=== PATIENT | female | born 1955 | race Caucasian/White ===

== ENCOUNTER 2025-04-25 08:26 | Inpatient (IN) | payer MEDICARE, SELFPAY ==
[2025-04-25] VITALS (29 sets, daily range): BP systolic 90–130; BP diastolic 40–83; PULSE 73–100; RESP 15–90; TEMP 34.1–36.9; O2SAT 96–100; BMI 20.1
--- NOTE | ~2025-04-25 | US_ITS ---
EXAMINATION: US carotid duplex BI DATE: 04/26/2025 17:19 INDICATION: CVA. TECHNIQUE: Grayscale, color Doppler, and pulsed Doppler images of the cervical carotid arteries were obtained. The degree of vessel stenosis is placed in one of the following categories: normal, <50%, 50-69%, >=70% but less than near- occlusion, near-occlusion, or total occlusion. Note that percent stenosis relative to normal distal artery lumen diameter is indirectly measured from velocity measurements as described by Deo, et al. Radiology 2003; 229:340-346. COMPARISON: CT head dated 04/25/2025 FINDINGS: RIGHT: The right common carotid artery (CCA) peak systolic velocity (PSV) is 82 cm/s. The right internal carotid artery (ICA) PSV is 113 cm/s. The right ICA end- diastolic velocity (EDV) is 25 cm/s. The right ICA/CCA PSV ratio is 1.38. Grayscale and color Doppler images yield an estimate of less than 50%% diameter reduction from plaque in the ICA. There is antegrade flow in the right vertebral artery. LEFT: The left CCA PSV is 66 cm/s. The left ICA PSV is 120 cm/s. The left ICA EDV is 40 cm/s. The left ICA/CCA PSV ratio is 1.79. Grayscale and color Doppler images yield an estimate of less than 50% diameter reduction from plaque in the ICA. There is antegrade flow in the left vertebral artery. IMPRESSION: 1. Antegrade flow in both vertebral arteries.. 2. Calcific atherosclerotic plaque of proximal internal carotid arteries on both sides with an estimated narrowing of less than 50% in diameter on each side based on NASCET criteria. No evidence of hemodynamically significant obstruction is noted.. Reviewed, dictated and finalized at location T. FIC SURVEY TECHNICIAN IMPRESSION: 1. Antegrade flow in both vertebral arteries.. 2. Calcific atherosclerotic plaque of proximal internal carotid arteries on bot h sides with an estimated narrowing of less than 50% in diameter on each side b ased on NASCET criteria. No evidence of hemodynamically significant obstruction is noted..
--- NOTE | ~2025-04-25 | XR_ITS ---
EXAMINATION: XR pelvis 1-2V, 04/25/2025 9:20 LIFE EDUCATOR HISTORY: fall COMPARISON: No comparisons available. Findings: No acute fracture or malalignment. No significant degenerative changes. Soft tissues unremarkable. Impression: No acute fracture or malalignment. Reviewed, dictated and finalized at location P. EDUCATOR Impression: No acute fracture or malalignment.
--- NOTE | ~2025-04-25 | US_ITS ---
EXAMINATION: US renal BI DATE: 04/25/2025 12:52 INDICATION: Acute renal insufficiency TECHNIQUE: Multiple ultrasound grayscale images of the kidneys were obtained. COMPARISON: None. FINDINGS: The right kidney measures 2.4 x 3.2 x 4.9 cm. The left kidney measures 11.1 x 4.5 x 3.7 cm. The kidneys demonstrate normal echogenicity. There is no hydronephrosis in either kidney. No stones identified. The bladder is partially decompressed which limits evaluation. IMPRESSION: 1. Normal kidneys without hydronephrosis. Reviewed, dictated and finalized at location A. STANT KITCHEN MANAGER
--- NOTE | ~2025-04-25 | CT_ITS ---
CT HEAD NON-CONTRAST CT C-SPINE Clinical History: ams Comparison: None Technique: Unenhanced axial images skull base to vertex. Coronal, sagittal reformats. Axial images thoracic inlet to skull base. Sagittal and coronal reformats. CT images acquired with automatic exposure control for dose reduction DLP: 605 mGy-cm Findings: Head: Hypodense focus left occipital lobe. Sulci, ventricles: Unremarkable. No intracerebral hemorrhage. No mass effect, midline shift, intra-/extra-axial fluid collection. Bony calvarium intact. Visualized paranasal sinuses: Clear. Mastoid air cells: Clear. C-spine: No acute fracture Grade 1 anterolisthesis C4 on 5. Straightening of normal cervical lordosis. Moderate degenerative changes in. Prevertebral soft tissues within normal limits. Visualized lung apices: Emphysema. Scarring. Visualized thyroid: Unremarkable. No enlarged cervical nodes. IMPRESSION: HEAD: 1. 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 Consider MRI, if able. 2. No intracerebral hemorrhage. C-SPINE: 1. No acute fracture. Reviewed, dictated and finalized at location R. CTOR OF HOSPITALITY IMPRESSION: HEAD: 1. 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 Consider MRI, if able. 2. No intracerebral hemorrhage. C-SPINE: 1. No acute fracture.
--- NOTE | ~2025-04-25 | MR_ITS ---
EXAMINATION: MRI brain with and without contrast: DATE: 04/26/2025 INDICATION: Stroke. TECHNIQUE: Axial, coronal and sagittal images of the brain including postcontrast series after administration of MultiHance IV. COMPARISON: CT head dated 04/25/2020 FINDINGS: Significant focal restricted diffusion in the occipital lobes, predominantly in the left occipital lobe and smaller area in the right occipital lobe suggestive of acute posterior circulation stroke. No acute intracranial bleed. No ventriculomegaly or midline shift. On postcontrast study no abnormal enhancement. IMPRESSION: 1. Restricted diffusion suggestive of acute infarct in the occipital lobes, predominantly on the left side and smaller area on the right side. 2. No intracranial bleed. No space-occupying lesions. No abnormal enhancement. Reviewed, dictated and finalized at location T. TIZER IMPRESSION: 1. Restricted diffusion suggestive of acute infarct in the occipital lobes, pre dominantly on the left side and smaller area on the right side. 2. No intracranial bleed. No space-occupying lesions. No abnormal enhancement.
--- NOTE | ~2025-04-25 | XR_ITS ---
EXAMINATION: XR chest 1V DATE: 04/25/2025 09:35 INDICATION: Altered mental status and fall TECHNIQUE: AP view of the chest was obtained. COMPARISON: None FINDINGS: Mild biapical pleural-parenchymal scarring. No other airspace opacities, pulmonary edema, pleural effusion or pneumothorax. The cardiomediastinal silhouette is normal. Lower thoracic spondylosis. IMPRESSION: 1. No acute cardiopulmonary disease. Reviewed, dictated and finalized at location A. MANUFACTURING ENGINEERING TECH
--- NOTE | 2025-04-25 08:37 | ECG_ITS ---
Test Date: 2025-04-25 08:40:09 Measurements Intervals [place] Rate: 91 P: 78 ME: 177 QRS: 75 QRSD: 94 T: 61 QT: 384 QTc: 475 Interpretive Statements SINUS RHYTHM RIGHT ATRIAL ENLARGEMENT BASELINE WANDER- V4-V6 BORDERLINE ECG No previous ECG available for comparison Electronically Signed On 04-25-2025 08:46:21 DUPLEX TRIMMER by Urbano Castillo D.O.
--- NOTE | 2025-04-25 08:41 | ED.AMS ---
HPI - Altered Mental Status General Chief Complaint: Altered Mental Status Stated Complaint: AMS Time Seen by Provider: 04/25/25 08:41 History of Present Illness HPI narrative: 69-year-old female with reported history of diabetes presents by EMS from home for altered mental status. There is no collateral or family at bedside. Patient is unable to provide any meaningful history. Per EMS report the blood sugars read as ?high?. Patient was found on the ground at home, no witnessed fall patient was apparently last known at her baseline per family were not present yesterday sometime Related Data Allergies Allergy/AdvReac Type Severity Reaction Status Date / Time No Known Allergies Allergy Unverified 02/10/18 13:46 Review of Systems Review of Systems: ROS unobtainable: Yes unobtainable due to mental status Exam Narrative: EXAMINATION OF ORGAN SYSTEMS/BODY AREAS: Constitutional: Vital signs per nursing GENERAL: Patient is disheveled moving around the bed nontoxic-appearing HEAD: Normal with no signs of head trauma. EYES: EOMI, conjunctiva normal, extraocular movements intact pupils equal round reactive 4 mm ENT: Dry mucous membranes LUNGS: Nonlabored breathing. Clear to auscultation bilaterally HEART: [Regular rate and rhythm], brisk cap refill ABD: [Soft], [nontender to palpation] EXT: Normal range of motion no obvious deformity SKIN: [No rashes or lesions.] Some superficial abrasions on the right hand otherwise no rashes noted NEURO: Patient withdraws all 4 extremities to pain, does not follow commands, A&O times 0, cranial nerves 2-12 grossly intact PSYCH: Agitated affect Course Vital Signs Vital signs: Vital Signs Pulse Rate 93 04/25/25 08:27 Respiratory Rate 20 04/25/25 08:27 Blood Pressure 105/54 L 04/25/25 08:27 Temperature 35.6 C L 04/25/25 11:01 Pulse Rate 97 04/25/25 11:01 Respiratory Rate 20 04/25/25 11:01 Blood Pressure 90/49 L 04/25/25 11:01 Pulse Oximetry 98 04/25/25 11:01 Oxygen Delivery Room Air 04/25/25 08:51 MDM Differential Diagnosis Differential Diagnosis: 69-year-old female presents with altered mental status was found to have significantly elevated blood sugar. I am concerned for DKA with the impetus is unclear at this time. Will initiate extensive altered mental status workup for any infectious etiology significant electrolyte abnormality. Will obtain CT head to rule out intracranial bleed or mass. Will initiate IV hydration she is significantly dehydrated, p.r.n. medications for agitation the patient will require hospitalization after stabilization ED workup. Resultant multiple re-evaluations Patient's labs notable for severe DKA. I have given the patient a bolus of IV insulin and started on the drip. I spoke with the fish hatchery man, and the hospitalists. There is still no family at bedside. Her clinical status is largely unchanged. Given her hypothermia hypotension severe leukocytosis and lactic acid I am concern for severe sepsis so she has got a 30 cc/kg bolus of fluids and I covered her empirically for sepsis of an unclear origin. Patient admitted to hospital in serious condition Lab Data MDM Lab Attestation statement: I personally reviewed the patient's lab results. 04/25/25 09:07 04/25/25 09:07 Labs: Lab Results 04/25/25 04/25/25 04/25/25 Range/Units 08:33 08:41 09:06 WBC (4.5-10.0) K/mm3 RBC (4.2-5.4) M/mm3 Hgb (12.0-15.0) g/dL Hct (37.0-47.0) % MCV (80-100) fl MCH (26-34) pg MCHC (32-36) g/dl RDW (11.5-14.5) % Plt Count (150-375) k/mm3 MPV (7.4-10.4) fl Immature Gran % (Auto) (0-0.5) % Neut % (Auto) (45.5-73.1) % Lymph % (Auto) (18.3-44.2) % [place] % (Auto) (2.6-8.5) % Eos % (Auto) (0-4.4) % Baso % (Auto) (0.2-1.2) % Lymph # (Auto) (0.9-3.2) K/mm3 [place] # (Auto) (0.1-0.6) K/mm3 Eos # (Auto) (0-0.3) K/mm3 Baso # (Auto) (0.0-0.1) K/mm3 Abs Immat Gran (auto) (0.00-0.031) K/mm3 Absolute Neuts (auto) (1.3-6.7) K/mm3 Absolute Nucleated RBC (0.0-0.012) K/mm3 Nucleated RBC % (0.0-0.2) % Methemoglobin 0.3 (0-1.5) %THb Sodium (137-145) mmol/L Potassium (3.4-5.0) mmol/L Chloride (98-107) mmol/L Carbon Dioxide (22-30) mmol/L Anion Gap (4-12) mmol/L BUN (7-17) mg/dL Creatinine (0.7-1.0) mg/dL Estim Creat Clear Calc ml/min Estimated GFR (59 - ) Glucose (65-110) mg/dL POC Capillary Glucose > 500 H* (65-105) mg/dl Hemoglobin A1c (<5.7) % Lactic Acid (0.7-2.0) mmol/L Calcium (8.4-10.2) mg/dL Phosphorus (2.5-4.5) mg/dL Magnesium (1.6-2.3) mg/dL Total Bilirubin (0.2-1.3) mg/dL AST (14-36) U/L ALT (6-35) U/L Alkaline Phosphatase (38-126) U/L Ammonia (9-30) umol/L Troponin I (0.000-0.034) ng/mL Total Protein (6.3-8.2) g/dL Albumin (3.5-5.1) g/dL TSH (Reflex) (0.465-4.68) uIU/mL Urine Color Yellow (Yellow) Urine Appearance Clear (Clear) Urine pH 5.0 (5.0-9.0) Ur Specific [place] 1.028 (1.001-1.035) Urine Protein Negative (Negative) mg/dL Urine Glucose (UA) 3+ H (Negative) mg/dL Urine Ketones 1+ H (Negative) mg/dL Ur Blood (Man) Negative (Negative) Urine Nitrate Negative (Negative) Urine Bilirubin Negative (Negative) Urine Urobilinogen 0.2 (<2.0) mg/dL Leukocyte Esterase Rfl Negative (Negative) ELLIOTT/UL Ethyl Alcohol (<10) mg/dL 04/25/25 04/25/25 04/25/25 Range/Units 09:07 09:07 09:08 WBC 22.6 H (4.5-10.0) K/mm3 RBC 4.56 (4.2-5.4) M/mm3 Hgb 13.5 (12.0-15.0) g/dL Hct 43.4 (37.0-47.0) % MCV 95.2 (80-100) fl MCH 29.6 (26-34) pg MCHC 31.1 L (32-36) g/dl RDW 13.2 (11.5-14.5) % Plt Count 295 (150-375) k/mm3 MPV 11.9 H (7.4-10.4) fl Immature Gran % (Auto) 2.8 H (0-0.5) % Neut % (Auto) 83.6 H (45.5-73.1) % Lymph % (Auto) 6.8 L (18.3-44.2) % [place] % (Auto) 6.1 (2.6-8.5) % Eos % (Auto) 0.0 (0-4.4) % Baso % (Auto) 0.7 (0.2-1.2) % Lymph # (Auto) 1.53 (0.9-3.2) K/mm3 [place] # (Auto) 1.4 H (0.1-0.6) K/mm3 Eos # (Auto) 0.0 (0-0.3) K/mm3 Baso # (Auto) 0.2 H (0.0-0.1) K/mm3 Abs Immat Gran (auto) 0.64 H (0.00-0.031) K/mm3 Absolute Neuts (auto) 18.9 H (1.3-6.7) K/mm3 Absolute Nucleated RBC 0.000 (0.0-0.012) K/mm3 Nucleated RBC % 0.0 (0.0-0.2) % Methemoglobin (0-1.5) %THb Sodium 130 L (137-145) mmol/L Potassium 4.8 (3.4-5.0) mmol/L Chloride 93 L (98-107) mmol/L Carbon Dioxide 10 L (22-30) mmol/L Anion Gap 27 H (4-12) mmol/L BUN 49 H (7-17) mg/dL Creatinine 1.90 H (0.7-1.0) mg/dL Estim Creat Clear Calc 21 ml/min Estimated GFR 26 L (59 - ) Glucose 1226 H* (65-110) mg/dL POC Capillary Glucose (65-105) mg/dl Hemoglobin A1c 9.9 H (<5.7) % Lactic Acid 6.4 H* (0.7-2.0) mmol/L Calcium 8.8 (8.4-10.2) mg/dL Phosphorus 7.6 H (2.5-4.5) mg/dL Magnesium 2.2 (1.6-2.3) mg/dL Total Bilirubin 0.6 (0.2-1.3) mg/dL AST 38 H (14-36) U/L ALT 31 (6-35) U/L Alkaline Phosphatase 148 H (38-126) U/L Ammonia < 9 L (9-30) umol/L Troponin I 0.102 H* Cancelled (0.000-0.034) ng/mL Total Protein 6.6 (6.3-8.2) g/dL Albumin 3.9 (3.5-5.1) g/dL TSH (Reflex) 2.360 (0.465-4.68) uIU/mL Urine Color (Yellow) Urine Appearance (Clear) Urine pH (5.0-9.0) Ur Specific [place] (1.001-1.035) Urine Protein (Negative) mg/dL Urine Glucose (UA) (Negative) mg/dL Urine Ketones (Negative) mg/dL Ur Blood (Man) (Negative) Urine Nitrate (Negative) Urine Bilirubin (Negative) Urine Urobilinogen (<2.0) mg/dL Leukocyte Esterase Rfl (Negative) ELLIOTT/UL Ethyl Alcohol < 10 (<10) mg/dL 04/25/25 04/25/25 Range/Units 10:17 11:42 WBC (4.5-10.0) K/mm3 RBC (4.2-5.4) M/mm3 Hgb (12.0-15.0) g/dL Hct (37.0-47.0) % MCV (80-100) fl MCH (26-34) pg MCHC (32-36) g/dl RDW (11.5-14.5) % Plt Count (150-375) k/mm3 MPV (7.4-10.4) fl Immature Gran % (Auto) (0-0.5) % Neut % (Auto) (45.5-73.1) % Lymph % (Auto) (18.3-44.2) % [place] % (Auto) (2.6-8.5) % Eos % (Auto) (0-4.4) % Baso % (Auto) (0.2-1.2) % Lymph # (Auto) (0.9-3.2) K/mm3 [place] # (Auto) (0.1-0.6) K/mm3 Eos # (Auto) (0-0.3) K/mm3 Baso # (Auto) (0.0-0.1) K/mm3 Abs Immat Gran (auto) (0.00-0.031) K/mm3 Absolute Neuts (auto) (1.3-6.7) K/mm3 Absolute Nucleated RBC (0.0-0.012) K/mm3 Nucleated RBC % (0.0-0.2) % Methemoglobin (0-1.5) %THb Sodium (137-145) mmol/L Potassium (3.4-5.0) mmol/L Chloride (98-107) mmol/L Carbon Dioxide (22-30) mmol/L Anion Gap (4-12) mmol/L BUN (7-17) mg/dL Creatinine (0.7-1.0) mg/dL Estim Creat Clear Calc ml/min Estimated GFR (59 - ) Glucose (65-110) mg/dL POC Capillary Glucose > 500 H* > 500 H* (65-105) mg/dl Hemoglobin A1c (<5.7) % Lactic Acid (0.7-2.0) mmol/L Calcium (8.4-10.2) mg/dL Phosphorus (2.5-4.5) mg/dL Magnesium (1.6-2.3) mg/dL Total Bilirubin (0.2-1.3) mg/dL AST (14-36) U/L ALT (6-35) U/L Alkaline Phosphatase (38-126) U/L Ammonia (9-30) umol/L Troponin I (0.000-0.034) ng/mL Total Protein (6.3-8.2) g/dL Albumin (3.5-5.1) g/dL TSH (Reflex) (0.465-4.68) uIU/mL Urine Color (Yellow) Urine Appearance (Clear) Urine pH (5.0-9.0) Ur Specific [place] (1.001-1.035) Urine Protein (Negative) mg/dL Urine Glucose (UA) (Negative) mg/dL Urine Ketones (Negative) mg/dL Ur Blood (Man) (Negative) Urine Nitrate (Negative) Urine Bilirubin (Negative) Urine Urobilinogen (<2.0) mg/dL Leukocyte Esterase Rfl (Negative) ELLIOTT/UL Ethyl Alcohol (<10) mg/dL ABG Data ABG results: 04/25/25 08:41 Puncture Site Right radial ABG pH 7.279 L* ABG pCO2 25.4 L ABG pO2 92.2 ABG PO2/FiO2 Ratio 4.39 ABG HCO3 11.6 L ABG O2 Saturation 96.3 ABG O2 Content 19.4 ABG Base Excess -13.2 A-a Gradient 27.1 Oxyhemoglobin 95.3 Carboxyhemoglobin 1.0 Reduced Hemoglobin 3.4 Total Hemoglobin 14.4 O2 Delivery Device Room air O2 Liters/Min Not Reportable FiO2 21 Imaging Data Radiologist's impression: ITS Impressions Cervical Spine CT 04/25/25 09:27 IMPRESSION: HEAD: 1. 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 Consider MRI, if able. 2. No intracerebral hemorrhage. C-SPINE: 1. No acute fracture. Head CT 04/25/25 09:27 IMPRESSION: HEAD: 1. 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 Consider MRI, if able. 2. No intracerebral hemorrhage. C-SPINE: 1. No acute fracture. Chest X-Ray 04/25/25 09:36 IMPRESSION: 1. No acute cardiopulmonary disease. Pelvis X-Ray 04/25/25 09:36 Impression: No acute fracture or malalignment. Critical Care Time Critical Care Time Critical Care Time: Yes Indication: severe dka Initial evaluation, discuss w/ involved parties, attempting to gather old records: 15 minutes Documenting medical record: 10 minutes Review of results (EKG's, labs, imaging): 10 minutes Serial repeat bedside evaluation: 10 minutes Discussing case with multiple memebers of the care team and consultants: 5 minutes Total Critical Care Time: 50 Discharge Plan Discharge Clinical Impression: DKA (diabetic ketoacidosis), Encephalopathy Patient Disposition: Still a Patient Condition: Serious Patient Language: Cuban Follow-up/Referrals: PHYSICIAN,CHANGE MANAGEMENT SPECIALIST [Non-Staff, Internal Medicine]
[2025-04-25] MEDS: SODIUM CHLORIDE 0.9% IV 1,000 ML 999 ML IV CONT ×2 (08:54→09:43)
[2025-04-25 08:57] LABS: Alveolar/Arterial O2 Gradient 27.1 mmHg; Carboxyhemoglobin 1.0 % THb (0-2.0); Fractional Inspired Oxygen 21 %; HCO3 ABG 11.6 mEq/l (22.0-26.0); Methemoglobin ABG 0.3 %THb (0-1.5); Oxygen Content ABG 19.4 %vol (16.0-22.0); Oxygen Saturation ABG 96.3 % (95.0-100.0); PCO2 ABG 25.4 mmHg (35.0-45.0); PO2 ABG 92.2 mmHg (80.0-100.0); PO2 FiO2 Ratio Arterial Blood 4.39 %; Reduced Hemoglobin 3.4 %THb (0-5.0)
[2025-04-25 09:00] LABS: Modified Allen's Test Pass; Site Drawn RIGHT RADIAL
[2025-04-25 09:20] LABS: Hematocrit 43.4 % (37.0-47.0); Hemoglobin 13.5 g/dL (12.0-15.0); Immature Granulocyte Percent A 2.8 % (0-0.5); Lymphocytes Absolute Auto 1.53 K/mm3 (0.9-3.2); Mean Corpuscular HGB Conc 31.1 g/dl (32-36); Mean Corpuscular Hemoglobin 29.6 pg (26-34); Mean Corpuscular Volume 95.2 fl (80-100); Nucleated Red Blood Cells Absolute Auto 0.000 K/mm3 (0.0-0.012); Nucleated Red Blood Cells Perc 0.0 % (0.0-0.2); Platelet Count Result 295 k/mm3 (150-375); Red Blood Count 4.56 M/mm3 (4.2-5.4); White Blood Count 22.6 K/mm3 (4.5-10.0)
[2025-04-25 09:21] LABS: Add Urine Microscopic? NO; Appearance Urine Clear (Clear); Glucose Urine UA 3+ mg/dL (Negative); Leukocyte Esterase Ur Negative LEU/UL (Negative); Nitrate Urine Negative (Negative); Specific Grav Ur 1.028 (1.001-1.035)
[2025-04-25 09:24] LABS: Ammonia < 9 umol/L (9-30)
[2025-04-25 09:32] LABS: Alanine Aminotransferase 31 U/L (6-35); Albumin Level 3.9 g/dL (3.5-5.1); Alkaline Phosphatase 148 U/L (38-126); Anion Gap 27 mmol/L (4-12); Aspartate Amino Transferase 38 U/L (14-36); Bilirubin,Total 0.6 mg/dL (0.2-1.3); Blood Urea Nitrogen 49 mg/dL (7-17); Calcium 8.8 mg/dL (8.4-10.2); Carbon Dioxide 10 mmol/L (22-30); Chloride 93 mmol/L (98-107); Estimated CRCL calculation 21 ml/min; Estimated Glomerular Filt Rate 26; Magnesium 2.2 mg/dL (1.6-2.3); Potassium 4.8 mmol/L (3.4-5.0); Sodium 130 mmol/L (137-145); Total Protein 6.6 g/dL (6.3-8.2)
[2025-04-25 09:44] LABS: Glucose 1226 mg/dL (65-110); Troponin I 0.102 ng/mL (0.000-0.034)
[2025-04-25] MEDS: INSULIN HUMAN REGULAR (*BKC) 100 UNITS/ML IV PUSH (10:00)
[2025-04-25] MEDS: INSULIN HUMAN REGULAR (*BKC) 100 UNITS in SODIUM CHLORIDE 0.9% IV 99 ML 5.5 UNITS IV CONT (10:22)
[2025-04-25] MEDS: SODIUM CHLORIDE 0.9% IV 1,000 ML 150 ML IV CONT ×2 (10:22→17:25)
[2025-04-25 10:24] LABS: Hemoglobin A1C 9.9 % (<5.7)
[2025-04-25 10:47] LABS: Thyroid Stimulating Hormone Reflex 2.360 uIU/mL (0.465-4.68)
[2025-04-25] MEDS: CEFEPIME 1 GM in SODIUM CHLORIDE 0.9% IV 50 ML 100 ML IVPB ×2 (11:15→20:32)
--- NOTE | 2025-04-25 11:30 | PC.NURSE ---
pts daughter, Omaira Clifford, called for an update on her mom. daughter was given status update on her mom. daughter stated that she would come up to the hospital once she recieves an ICU bed.
--- NOTE | 2025-04-25 11:41 | WPDCNINT2 ---
Assessment and Plan Assessment and plan (1) DKA (diabetic ketoacidosis): Code(s): E11.10 - Type 2 diabetes mellitus with ketoacidosis without coma Status: Acute Assessment and Plan: Lab work consistent with DKA. Patient also appears dehydration hypovolemia Pt was given IVF bolus and will be started on infusion Insulin infusion started and Q1H glucose monitoring is being done Serial labs ordered Replace electrolytes as needed Will transition to SC insulin once AG is closed Consult dietitian and biological technical officer (2) Encephalopathy: Code(s): G93.40 - Encephalopathy, unspecified Status: Acute Assessment and Plan: Encephalopathy likely secondary to DKA. Symptoms are already improving since presentation Ammonia and TSH normal Head CT shows possible left occipital subacute infarct Will obtain MRI once acute issues are stabilized (3) Sepsis: Code(s): A41.9 - Sepsis, unspecified organism Status: Acute Assessment and Plan: Patient meets criteria with sepsis although there is no focal source of infection heparin at this time UA and chest x-ray negative Patient given empiric vancomycin and cefepime in the ER Blood cultures drawn Check procalcitonin level Monitor lactic acid level (4) CVA (cerebral vascular accident): Code(s): I63.9 - Cerebral infarction, unspecified Status: Acute Assessment and Plan: Head CT shows left occipital infarct probably subacute. Will obtain MRI for further evaluation (5) Elevated serum creatinine: Code(s): R79.89 - Other specified abnormal findings of blood chemistry Status: Acute Assessment and Plan: Presented with elevated serum creatinine 1.9 Baseline unknown but I suspect patient has chronic kidney disease as evidenced by elevated phosphate level Check urine sodium creatinine and CK level Monitor urine output electrolytes and creatinine Obtain renal ultrasound Will consult nephrology depending on evaluation Plan DVT prophylaxis -Lovenox Nutrition - NPO Code Status - Full Code Spoke to and updated pts daughter by phone Total Critical Care Time - 30 minutes Due to a high probability of clinically significant, life threatening deterioration, the patient required my highest level of preparedness to intervene emergently and I personally spent this critical care time directly and personally managing the patient. This critical care time included obtaining a history; examining the patient; pulse oximetry; ordering and review of studies; arranging urgent treatment with development of a management plan; evaluation of patient's response to treatment; frequent reassessment; and discussions with other providers. It was exclusive of separately billable procedures and treating other patients and teaching time. Please see Assessment and Plan section and the rest of the note for further information on patient assessment and treatment Senior Software Development Engineer Consult Note Consult date: 04/25/25 Reason for consult: DKA, altered mental status HPI: Urvashi Clifford is a 69 year old female with unknown past medical history who was brought in by EMS with altered mental status. Apparently EMS was called by family but no family available in the ER. In ER patient was found to be altered, hypothermic with low blood pressure. She appeared dry on exam. Lab work showed elevated WBC at 22.6 platelet 295 CO2 10 anion gap 27 creatinine 1.9 blood glucose 1226 HbA1c 9.9 lactic acid 6.4 Patient was given fluid bolus, empiric antibiotics and started on insulin infusion. Patient will be now admitted to ICU for further evaluation management. During my evaluation patient is awake but confused she is moving all 4 extremity but does not answer any questions. She mumbles incomprehensibly but he exhibits purposeful behavior. I spoke to patient's daughter by phone and she told me the patient since yesterday had been having nausea and vomiting and was unable to keep anything down. She does not report any other symptoms. She states that patient this morning around 3:00 a.m. was on the floor and breathing but not very responsive and she called 911. She states the patient does not see physician frequently and only takes insulin. She does not know the dose. Patient's daughter is not aware of any other medical problem the patient has. She does report patient drinks alcohol occasionally, smokes 1 pack per day cigarettes and also smokes marijuana. She is not aware of any surgeries the patient may have had in the past Review of Systems Review of Systems: ROS unobtainable: Yes unobtainable due to medical condition and unobtainable due to mental status [facility] Past Medical History Medical History Diabetes mellitus Social History Social History Social History: Smokes marijuana daily, smokes 1 pack per day daily she has been smoking for long time. Drinks alcohol occasionally. Smoking status: Unknown if ever smoked Alcohol intake: unknown Substance use: unknown Substance use type: unknown Spiritual care concerns: No Meds Home Medications and Allergies Allergies Allergy/AdvReac Type Severity Reaction Status Date / Time No Known Allergies Allergy Verified 04/25/25 13:19 Vital Signs Vital Signs - 24 hr 04/25/25 08:27 04/25/25 08:37 04/25/25 08:50 Temperature 34.1 C L Pulse Rate 93 93 90 Respiratory Rate 20 19 Blood Pressure 105/54 L 105/83 Pulse Oximetry 96 Oxygen Delivery 04/25/25 08:51 04/25/25 08:55 04/25/25 09:05 Temperature 34.1 C L 34.4 C L Pulse Rate 90 Respiratory Rate 20 Blood Pressure 105/83 Pulse Oximetry 100 100 Oxygen Delivery Room Air 04/25/25 09:06 04/25/25 09:45 04/25/25 09:45 Temperature 34.4 C L 34.8 C L 34.7 C L Pulse Rate 91 Respiratory Rate 24 H Blood Pressure 114/61 Pulse Oximetry 99 Oxygen Delivery 04/25/25 10:04 04/25/25 10:04 04/25/25 10:33 Temperature 34.8 C L 35.0 C L Pulse Rate 90 Respiratory Rate 28 H Blood Pressure 114/61 Pulse Oximetry 98 Oxygen Delivery 04/25/25 10:33 04/25/25 11:01 04/25/25 11:01 Temperature 35.0 C L 35.6 C L 35.6 C L Pulse Rate 98 97 Respiratory Rate 18 20 Blood Pressure 90/49 L 90/49 L Pulse Oximetry 100 98 Oxygen Delivery Exam Narrative: General: Pt is confused drowsy but arousable Lungs/Chest: Trachea central Clear BS B/L, No crackles or wheezing. Cardiac: RRR. Normal S1 S2. No murmurs Circulation: Pedal pulses are intact and symmetrical. Abdomen: Normal bowel sounds.. Soft. NT. ND. Extremities: No clubbing, cyanosis or edema. Warm : Sanchez in place Neurologic: She moves all 4 extremities spontaneously PERRL, she is confused awake and talking incomprehensible words. She does not follow commands or answer questions. She does resist exam and try to catch my hands when I try to examine her eyes. Skin: No Rash HEENT: Oral mucosa is dry Results Labs 04/25/25 09:07 04/25/25 12:48 Labs: Impressions Cervical Spine CT 04/25/25 09:27 IMPRESSION: HEAD: 1. 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 Consider MRI, if able. 2. No intracerebral hemorrhage. C-SPINE: 1. No acute fracture. Head CT 04/25/25 09:27 IMPRESSION: HEAD: 1. 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 Consider MRI, if able. 2. No intracerebral hemorrhage. C-SPINE: 1. No acute fracture. Chest X-Ray 04/25/25 09:36 IMPRESSION: 1. No acute cardiopulmonary disease. Pelvis X-Ray 04/25/25 09:36 Impression: No acute fracture or malalignment. Short CBC 04/25/25 Range/Units 09:07 WBC 22.6 H (4.5-10.0) K/mm3 Hgb 13.5 (12.0-15.0) g/dL Hct 43.4 (37.0-47.0) % Plt Count 295 (150-375) k/mm3 BMP 04/25/25 09:07 Sodium 130 L Potassium 4.8 Chloride 93 L Carbon Dioxide 10 L BUN 49 H Creatinine 1.90 H Glucose 1226 H* Calcium 8.8 Cardiac Enzymes 04/25/25 04/25/25 Range/Units 09:07 09:07 Troponin I 0.102 H* Cancelled (0.000-0.034) ng/mL Liver Function 04/25/25 Range/Units 09:07 Total Bilirubin 0.6 (0.2-1.3) mg/dL AST 38 H (14-36) U/L ALT 31 (6-35) U/L Alkaline Phosphatase 148 H (38-126) U/L Albumin 3.9 (3.5-5.1) g/dL Urine 04/25/25 Range/Units 09:06 Urine Color Yellow (Yellow) Urine Appearance Clear (Clear) Urine pH 5.0 (5.0-9.0) Ur Specific [place] 1.028 (1.001-1.035) Urine Protein Negative (Negative) mg/dL Urine Glucose (UA) 3+ H (Negative) mg/dL Critical Care Time Critical Care Time Critical Care Time: Yes Initial evaluation, discuss w/ involved parties, attempting to gather old records: 15 minutes Documenting medical record: 10 minutes Review of results (EKG's, labs, imaging): 5 minutes Serial repeat bedside evaluation: N/A Discussing case with multiple memebers of the care team and consultants: N/A Total Critical Care Time: 30 Quality VTE Prophylaxis VTE prophylaxis: pharmacologic ordered Hospitalist MIPS Advance Care Plan I have confirmed that the patient's Advanced Care Plan is present, code status is documented, or surrogate decision maker is listed in patient medical record.: Yes Medication Reconciliation I have utilized all available resources to obtain, update and review the patients current medications (includes all prescriptions, OTC, herbals, cannabis, and nutritional supplements).: Yes
--- NOTE | 2025-04-25 12:20 | PC.NURSE ---
core temperature 98.2. millicent penny removed. POC BS >600, product safety professional paged to discuss ordering BMP.
--- NOTE | 2025-04-25 12:24 | WPCEDHO ---
ED Hand Off Checklist All vitals saved:yes IV Site documented:yes All med administrations documented:yes Triage Note Triage Note Pt to ED via [facility] from 04/25/25 08:27 home where pt was found on the floor by her daughter. Unknown down time. Pt has PMH of DM and BS was in the 400s in route. Per EMS, pt is alert, not answering questions, moaning, restless, not following commands. Per EMS, pt has occasional fireball but this is not common. Pt reported to have had N/V over the past day , has dried/dark brown substance around mouth and on bilat hands. Pt has poor hygiene noted, per EMS house was dirty and in poor conditions. BS in ED reads HIGH. Allergies No Known Allergies Allergy (Unverified 02/10/18 13:46) Active Medications including assessments/comments Droperidol (Droperidol 5 Mg/2 Ml Vial) 2.5 mg IV PUSH ONCE PRN PRN Reason: Agitation Last Admin: 04/25/25 10:15 Dose: 2.5 mg Documented By: ELBA Insulin Human Regular 100 (units/ Sodium Chloride) 100 mls @ 9.5 mls/hr IV CONT .[id number] [place]; Protocol Last Titration: 04/25/25 12:12 Dose: 9.5 units/hr, 9.5 mls/hr Documented By: BOB Co-signed By: NELSY Infusion/Titration Document 04/25/25 12:12 KJT (Rec: 04/25/25 12:16 MABELT [id number]) Co-signed By Marcella Ellis RN Intake IV Site Peripheral Access Right Wrist Intake 10.1 Cumulative Intake ( 10.1 bag) Cumulative Intake ( 10.1 Rx) Container Volume 89.9 Waste Amount 0 Dosing Dose Rate 9.5 Infusion Rate 9.5 Cumulative Dose 10.1 Increase/Decrease Increased Elapsed Time Elapsed Time ( 1h 50m minutes) MAR IV Insulin Document 04/25/25 12:12 MABELT (Rec: 04/25/25 12:16 MABELT [id number]) Co-signed By Marcella Ellis RN Reason for Administration IV Insulin Infusion DKA Protocol - Reason for Administration Blood Glucose Random Glucose Yes Ordered IV Insulin Action/Checks IV Insulin Action Titrated - Blood Glucose Verified and Dose Adjusted per Guidelines DKA Trends Insulin Infusion - Blood Glucose Trend Downward DKA Trends Admin: 04/25/25 10:22 Dose: 5.5 units/hr, 5.5 mls/hr Documented By: ELBA Co-signed By: SHAHEEN Infusion/Titration Document 04/25/25 10:22 ELBA (Rec: 04/25/25 10:25 ELBA [id number]) Co-signed By Shannon Strong, line out worker IV Site Peripheral Access Right Wrist Container Volume 100 Waste Amount 0 Dosing Dose Rate 5.5 Infusion Rate 5.5 Increase/Decrease Started Elapsed Time Elapsed Time ( 0m minutes) MAR IV Insulin Document 04/25/25 10:22 ELBA (Rec: 04/25/25 10:25 ELBA [id number]) Co-signed By Shannon Strong RN Reason for Administration IV Insulin Infusion DKA Protocol - Reason for Administration Blood Glucose Random Glucose Yes Ordered IV Insulin Action/Checks IV Insulin Action Initiated Sodium Chloride (Normal Saline Iv) 1,000 mls @ 150 mls/hr IV CONT .Q6H40M [facility] Last Admin: 04/25/25 10:22 Dose: 150 mls/hr Documented By: ELBA Infusion/Titration Document 04/25/25 10:22 ELBA (Rec: 04/25/25 10:22 [facility] [id number]) Intake IV Site Peripheral Access Right Wrist Container Volume 1,000 Waste Amount 0 Dosing Infusion Rate 150 Cumulative Dose Not Applicable Increase/Decrease Started Elapsed Time Elapsed Time ( 0m minutes) Administered/Completed Medications Discontinued Medications Sodium Chloride (Normal Saline Iv) 1,000 mls @ 999 mls/hr IV CONT .Q1H1M STA Stop: 04/25/25 09:36 Last Infusion: 04/25/25 10:07 Dose: Infused Documented By: Admin: 04/25/25 08:54 Dose: 999 mls/hr Documented By: ELBA Sodium Chloride (Normal Saline Iv) 1,000 mls @ 999 mls/hr IV CONT .Q1H1M [place] Stop: 04/25/25 10:27 Last Infusion: 04/25/25 10:26 Dose: Infused Documented By: Admin: 04/25/25 09:43 Dose: 999 mls/hr Documented By: ELBA Cefepime HCl 1 gm/ Sodium (Chloride) 50 mls @ 100 mls/hr IVPB ONCE STA Stop: 04/25/25 11:19 Last Infusion: 04/25/25 11:45 Dose: Infused Documented By: Admin: 04/25/25 11:15 Dose: 100 mls/hr Documented By: NELSY Insulin Human Regular (Insulin Human Regular (*Bkc) 100 Units/Ml) 2.8 units 0.05 units/kg (2.8 units) IV PUSH ONCE ONE Stop: 04/25/25 09:48 Last Admin: 04/25/25 10:00 Dose: 2.8 units Documented By: ELBA Co-signed By: REGLA Notes 04/25/25 12:20 Nurse Note by Yasmin Tripp core temperature 98.2. millicent hugger removed. POC BS >600, senior auditor paged to discuss ordering BMP. Initialized on 04/25/25 12:20 - END OF NOTE 04/25/25 11:30 (created 04/25/25 11:37) Nurse Note by Marcella Ellis pts daughter, Omaira Clifford, called for an update on her mom. daughter was given status update on her mom. daughter stated that she would come up to the hospital once she recieves an ICU bed. Initialized on 04/25/25 11:37 - END OF NOTE Interventions/Assessments Cardiac Monitoring Start: 04/25/25 08:26 Freq: Status: Active Protocol: Document 04/25/25 08:37 ELBA (Rec: 04/25/25 08:37 [facility] [id number]) Tube Pusher Assessment Tube Pusher Yes Applied Pulse Rate (60-100) 93 IV / Saline Lock, Insert Start: 04/25/25 08:36 Freq: STAT Status: Active Protocol: Document 04/25/25 09:05 ELBA (Rec: 04/25/25 09:05 [facility] [id number]) IV Assessment Peripheral Access Right Wrist IV Catheter Access Initiated IV Insertion Date 04/25/25 IV Insertion Time 09:05 Catheter Gauge 18 IV Site Assessment WNL IV Care and WNL Maintenance PA: Cardiovascular Assessment Start: 04/25/25 08:26 Freq: Status: Active Protocol: Document 04/25/25 10:33 ELBA (Rec: 04/25/25 10:33 [facility] [id number]) Cardiovascular Assessment Cardiovascular None Symptoms Additional AMS, found on floor of home, unable to provide history Cardiovascular Assessment Comments PA: Neurological Assessment Start: 04/25/25 08:26 Freq: Status: Active Protocol: Document 04/25/25 08:38 [facility] (Rec: 04/25/25 08:41 [facility] [id number]) Neurological Assessment Level of Alert Consciousness Arousable to Verbal Orientation Disoriented to Person,Disoriented to Place,Disoriented to Time Neurological Confusion,Weakness, General Symptoms Behavior Guarded,Restless,Withdrawn Patient Unable to Comprehend Comprehension Memory Description Unable to Assess Ability to Maintain Unable to Assess Balance PA: Respiratory Assessment Start: 04/25/25 08:26 Freq: Status: Active Protocol: Document 04/25/25 08:51 [facility] (Rec: 04/25/25 08:53 [facility] [id number]) Respiratory Assessment Symptoms None Effort Normal Pattern Regular Depth Normal Chest Expansion Symmetrical Bilateral Throughout Phase Inspiratory & Expiratory Lung Sounds Clear,Diminished Cough Description None Oxygen Delivery Oxygen Delivery Room Air Pulse Oximetry (90- 100 100) Last Vital Signs Temperature 98.2 F 04/25/25 12:22 Pulse Rate 97 04/25/25 12:22 Respiratory Rate 22 H 04/25/25 12:22 Pulse Oximetry 99 04/25/25 12:22 Blood Pressure 107/54 L 04/25/25 12:22 Blood Pressure Mean 71 04/25/25 12:22 Blood Pressure Position Supine 04/25/25 12:22 Oxygen Delivery Room Air 04/25/25 08:51 Weight 56 kg 04/25/25 08:27 Last Result - Abnormals Only WBC 22.6 K/mm3 (4.5-10.0) H 04/25/25 09:07 MCHC 31.1 g/dl (32-36) L 04/25/25 09:07 MPV 11.9 fl (7.4-10.4) H 04/25/25 09:07 Immature Gran % (Auto) 2.8 % (0-0.5) H 04/25/25 09:07 Neut % (Auto) 83.6 % (45.5-73.1) H 04/25/25 09:07 Lymph % (Auto) 6.8 % (18.3-44.2) L 04/25/25 09:07 Cameron # (Auto) 1.4 K/mm3 (0.1-0.6) H 04/25/25 09:07 Baso # (Auto) 0.2 K/mm3 (0.0-0.1) H 04/25/25 09:07 Abs Immat Gran (auto) 0.64 K/mm3 (0.00-0.031) H 04/25/25 09:07 Absolute Neuts (auto) 18.9 K/mm3 (1.3-6.7) H 04/25/25 09:07 ABG pH 7.279 (7.350-7.450) L* 04/25/25 08:41 ABG pCO2 25.4 mmHg (35.0-45.0) L 04/25/25 08:41 ABG HCO3 11.6 mEq/l (22.0-26.0) L 04/25/25 08:41 Sodium 130 mmol/L (137-145) L 04/25/25 09:07 Chloride 93 mmol/L (98-107) L 04/25/25 09:07 Carbon Dioxide 10 mmol/L (22-30) L 04/25/25 09:07 Anion Gap 27 mmol/L (4-12) H 04/25/25 09:07 BUN 49 mg/dL (7-17) H 04/25/25 09:07 Creatinine 1.90 mg/dL (0.7-1.0) H 04/25/25 09:07 Estimated GFR 26 (59-) L 04/25/25 09:07 Glucose 1226 mg/dL (65-110) H* 04/25/25 09:07 POC Capillary Glucose > 500 mg/dl (65-105) H* 04/25/25 11:42 Hemoglobin A1c 9.9 % (<5.7) H 04/25/25 09:08 Lactic Acid 3.5 mmol/L (0.7-2.0) H 04/25/25 11:45 Phosphorus 7.6 mg/dL (2.5-4.5) H 04/25/25 09:07 AST 38 U/L (14-36) H 04/25/25 09:07 Alkaline Phosphatase 148 U/L (38-126) H 04/25/25 09:07 Ammonia < 9 umol/L (9-30) L 04/25/25 09:08 Troponin I 0.102 ng/mL (0.000-0.034) H* 04/25/25 09:07 Urine Glucose (UA) 3+ mg/dL (Negative) H 04/25/25 09:06 Urine Ketones 1+ mg/dL (Negative) H 04/25/25 09:06
--- NOTE | 2025-04-25 12:24 | PC.NURSE ---
Dr. Mendez notified of pt. B.S. reading >600 and current increased rate to 9.5mL/hr. Per MD, ok to continue the rate at 9.5mL/hr. Verbal order given for BMP.
[2025-04-25] MEDS: VANCOMYCIN 750 MG/NS 250 ML 750 MG/250 ML BAG 250 MG IVPB (12:28)
[2025-04-25 12:34] LABS: Procalcitonin 16.8 ng/mL
--- NOTE | 2025-04-25 12:36 | PC.NURSE ---
Ultrasound at bedside. Pt. easily agitated when touched. Ultrasound states they have 5 minutes left until they are complete. Will redraw BMP and transport pt. to ICU when they are finished.
[2025-04-25 12:46] LABS: Anion Gap 18 mmol/L (4-12); Blood Urea Nitrogen 50 mg/dL (7-17); Calcium 8.1 mg/dL (8.4-10.2); Carbon Dioxide 9 mmol/L (22-30); Chloride 105 mmol/L (98-107); Estimated CRCL calculation 22 ml/min; Estimated Glomerular Filt Rate 29; Potassium 3.6 mmol/L (3.4-5.0); Sodium 132 mmol/L (137-145)
--- NOTE | 2025-04-25 12:50 | P.HP_ITS ---
H&P: HPI History of Present Illness Date/Time: 04/25/25 12:50 Chief Complaint: AMS Narrative: 69 y/o F with PMH of diabetes and tobacco use (1PPD) presents here with altered mental status and hyperglycemia. Patient presents here from home via EMS on 04/25 for further evaluation of altered mental status. HPI obtained through chart review, EMS report, patient's daughter as the patient is currently unable to provide a reliable history. Patient was found on the floor by her daughter alert, but not answering questions/not following commands/restless around 3:00 a.m. last night. Unknown down time. Last known well yesterday (04/24) but unsure of time. She reportedly has had nausea and vomiting over the past few days. She has a history of type 2 diabetes, per EMS was 400s in route. Per daughter she is unaware of any other medical problems and that the patient is currently only on insulin. Occasional alcohol use and marijuana use. Initial VS at presentation: 93.3? F, HR 93, R 20, 105/54, and 96% on RA. ED workup showed: WBC 22.6, she ABG showed a pH of 7.279/CO2 25.4/HCO3 11.6, sodium 132, gap 18, creatinine 1.75 and GFR 29, initial glucose 1063, lactic 3.5, CK 386, procalcitonin 16.8. Head CT showed a left occipital infarct, probably subacute. C-spine CT showed no acute fracture. CXR showed no acute cardiopulmonary disease. Pelvic XR showed no acute fracture malalignment. Renal ultrasound showed normal kidneys without hydronephrosis. Review of Systems Review of Systems: ROS unobtainable: Yes unobtainable due to mental status [facility] Past Medical History Medical History (Updated 04/25/25 @ 15:03 by Mary Elizabeth APRN) Tobacco smoker, 1 pack of cigarettes or less per day Diabetes mellitus Social History Social History Social History: Smokes marijuana daily, smokes 1 pack per day daily she has been smoking for long time. Drinks alcohol occasionally. Smoking status: Unknown if ever smoked Alcohol intake: unknown Substance use: unknown Substance use type: unknown Spiritual care concerns: No Meds Home Medications and Allergies Allergies Allergy/AdvReac Type Severity Reaction Status Date / Time No Known Allergies Allergy Verified 04/25/25 13:19 Vital Signs Vital Signs - 24 hr 04/25/25 08:27 04/25/25 08:37 04/25/25 08:50 Temperature 93.3 F L Pulse Rate 93 93 90 Respiratory Rate 20 19 Blood Pressure 105/54 L 105/83 Pulse Oximetry 96 Oxygen Delivery 04/25/25 08:51 04/25/25 08:55 04/25/25 09:05 Temperature 93.3 F L 94.0 F L Pulse Rate 90 Respiratory Rate 20 Blood Pressure 105/83 Pulse Oximetry 100 100 Oxygen Delivery Room Air 04/25/25 09:06 04/25/25 09:45 04/25/25 09:45 Temperature 94.0 F L 94.6 F L 94.5 F L Pulse Rate 91 Respiratory Rate 24 H Blood Pressure 114/61 Pulse Oximetry 99 Oxygen Delivery 04/25/25 10:04 04/25/25 10:04 04/25/25 10:33 Temperature 94.6 F L 95.0 F L Pulse Rate 90 Respiratory Rate 28 H Blood Pressure 114/61 Pulse Oximetry 98 Oxygen Delivery 04/25/25 10:33 04/25/25 11:01 04/25/25 11:01 Temperature 95.0 F L 96.0 F L 96.0 F L Pulse Rate 98 97 Respiratory Rate 18 20 Blood Pressure 90/49 L 90/49 L Pulse Oximetry 100 98 Oxygen Delivery 04/25/25 11:30 04/25/25 12:20 04/25/25 12:22 Temperature 97.4 F L 98.2 F 98.2 F Pulse Rate 97 Respiratory Rate 22 H Blood Pressure 107/54 L Pulse Oximetry 99 Oxygen Delivery Exam Const: Other: , female, restless, ill-appearing HENMT: Face/Nose/Sinus: Normal nares present Mouth: Yes dry mucous membranes Eyes: General: appearance normal, both eyes and all related structures Sclera: sclerae normal Pupils: Equal, round and reactive pupils present EOM: EOMs intact bilaterally (Unable to assess due to inability to follow commands) Resp: Effort & Inspection: normal respiratory effort Auscultation: clear to auscultation bilaterally Cardio: Rate: regular rate Rhythm: regular rhythm Other: S1-S2 present without murmur, rub, ectopy GI: Other: Abdomen soft, nondistended, nontender. Normoactive bowel sounds in all quadrants. Old midline incision to the lower abdomen noted, well healed with no erythema. Skin: General skin exam: normal color and no rashes or lesions noted Wounds: no wounds Neuro: Other: Patient A&O to self only. No spontaneous eye opening but does attempt to respond verbally. Restless. Unable to follow commands. Extrem: General: normal to inspection Psych: Other: Poor insight and judgment at present. Results Labs Labs: Short CBC 04/25/25 Range/Units 09:07 WBC 22.6 H (4.5-10.0) K/mm3 Hgb 13.5 (12.0-15.0) g/dL Hct 43.4 (37.0-47.0) % Plt Count 295 (150-375) k/mm3 BMP 04/25/25 04/25/25 09:07 11:45 Sodium 130 L 132 L Potassium 4.8 3.6 Chloride 93 L 105 Carbon Dioxide 10 L 9 L BUN 49 H 50 H Creatinine 1.90 H 1.75 H Glucose 1226 H* Calcium 8.8 8.1 L Cardiac Enzymes 04/25/25 04/25/25 Range/Units 09:07 09:07 Troponin I 0.102 H* Cancelled (0.000-0.034) ng/mL Liver Function 04/25/25 Range/Units 09:07 Total Bilirubin 0.6 (0.2-1.3) mg/dL AST 38 H (14-36) U/L ALT 31 (6-35) U/L Alkaline Phosphatase 148 H (38-126) U/L Albumin 3.9 (3.5-5.1) g/dL Urine 04/25/25 Range/Units 09:06 Urine Color Yellow (Yellow) Urine Appearance Clear (Clear) Urine pH 5.0 (5.0-9.0) Ur Specific [place] 1.028 (1.001-1.035) Urine Protein Negative (Negative) mg/dL Urine Glucose (UA) 3+ H (Negative) mg/dL Critical Care Time Critical Care Time Critical Care Time: Yes Time Type: Intermittent Initial evaluation, discuss w/ involved parties, attempting to gather old records: 10 minutes Documenting medical record: 10 minutes Review of results (EKG's, labs, imaging): 10 minutes Serial repeat bedside evaluation: N/A Discussing case with multiple memebers of the care team and consultants: 10 minutes Total Critical Care Time: 40 Quality VTE Prophylaxis VTE prophylaxis: pharmacologic ordered Assessment and Plan Assessment and plan (1) DKA (diabetic ketoacidosis): Qualifiers: Diabetes mellitus complication detail: without coma Diabetes mellitus type: type 2 Qualified Code(s): E11.10 - Type 2 diabetes mellitus with ketoacidosis without coma Code(s): E11.10 - Type 2 diabetes mellitus with ketoacidosis without coma Status: Acute Assessment and Plan: History of diabetes on insulin per daughter. Initial lab work showed: ABG showed a pH of 7.279, HC03 11.6. K 3.6, glucose 1063, gap 18, lactic 3.5, A1c 9.9%. Lab work consistent with DKA. Additionally had nausea/vomiting x1 day. Now altered with last known well sometime yesterday on 04/24. - IV fluids: 2L -> maintenance fluids - trend BMP Q4H, repeat Mag and Phos - DKA protocol initiated and hypoglycemia protocol in place - IV fluids: given XXL in ED. Now on XX mL/hr of XX - insulin gtt initiated on 04/25, transition to SC once anion gap closed - NPO - hold home medications: - buncher operator consulted, Andrea AGUIAR. See note. - perinatal educator consulted - middle school guidance counselor consulted (2) Encephalopathy: Code(s): G93.40 - Encephalopathy, unspecified Status: Acute Assessment and Plan: New altered mental status with last known well sometime day prior to arrival (04/24). Head CT remarkable for subacute infarct which could be contributing. However encephalopathy the more likely due to DKA since symptoms have been improving since presentation. Ammonia and TSH evaluated during initial assessment, normal. - MRI once clinically stable to further evaluate subacute infarct - neurological checks Q4H (3) Sepsis: Code(s): A41.9 - Sepsis, unspecified organism Status: Acute Assessment and Plan: Met sepsis/SIRS criteria due to HR and WBC. No clear source of infection. CXR and UA showed no indicators of same. Viral PCR pending. - empiric vancomycin and cefepime in the ER given, continued inpatient - blood cultures drawn on 04/25, follow - procalcitonin 16.8 - trend lactic, 6.4 -> 3.5 (4) CVA (cerebral vascular accident): Qualifiers: CVA mechanism: unspecified Qualified Code(s): I63.9 - Cerebral infarction, unspecified Code(s): I63.9 - Cerebral infarction, unspecified Status: Acute Assessment and Plan: Head CT shows left occipital infarct probably subacute. Last known well on 04/24, unknown time. Discovered altered at 3:00 a.m. on 04/25. No previous history of stroke per patient's daughter. - obtain MRI once clinically stable - echo with bubble study - neurology consulted - neurological checks q.4 hours - A1c 9.9% on 04/25/2025, add lipid panel - telemetry monitoring - may need PT/OT/ST, re-evaluate for the services once more clinically stable - start aspirin, atorvastatin, Plavix once improved in able to take oral medications (5) Elevated serum creatinine: Code(s): R79.89 - Other specified abnormal findings of blood chemistry Status: Acute Assessment and Plan: No previously known history of CKD or renal disease per daughter. Creatinine 1.75, BUN 50, GFR 29 upon admission on 04/25. Lab work concerning for CKD as the patient has elevated phosphate levels. - IV fluids - check urine sodium, creatinine, CK levels - monitor electrolytes, correct as needed - trend renal function - renal ultrasound normal, no hydronephrosis noted - nephrology consultation pending evaluation/if patient improves with IV fluids Plan Diet: NPO GI Prophylaxis: PPI IV DVT Prophylaxis: Enoxaparin SQ IV fluids: 2L -> 150 mL/hr Lines/Tubes: pIV Code Status: Full code Prior Studies I have reviewed the following patient records and this information was taken into consideration when formulating the assessment and plan.: previous labs, previous ER visits, previous hospitalizations and previous clinic visits Time Spent with Patient Time with patient: 45 - 74 minutes Hospitalist MIPS Advance Care Plan I have confirmed that the patient's Advanced Care Plan is present, code status is documented, or surrogate decision maker is listed in patient medical record.: Yes Medication Reconciliation I have utilized all available resources to obtain, update and review the patients current medications (includes all prescriptions, OTC, herbals, cannabis, and nutritional supplements).: Yes
[2025-04-25 12:52] LABS: Creatine Kinase 386 U/L (30-135)
--- NOTE | 2025-04-25 12:54 | ADMGEN ---
This patient, Urvashi Clifford, was admitted to Intensive Care Unit-5. Patient/family oriented to hospital policies and general routines including ID bracelet, bed and alarms, visiting hours, pain management, procedures, bathroom and other care routines, personal items, smoking policy, room service/diet, and visiting hours. Information on how to activate the Rapid Response Team has been discussed. Patient/Family are encouraged to report perceived risks to care and to ask questions if they do not understand what they are told or what they should do.
[2025-04-25 13:02] LABS: Glucose 1063 mg/dL (65-110)
--- NOTE | 2025-04-25 13:09 | PC.NURSE ---
pts daughter called by this RN and notified of pts room and an update on condition
--- NOTE | 2025-04-25 13:41 | ECHO_ITS ---
Patient Info Name: Urvashi Clifford Age: 69 years : 1955 Gender: Female Ht: 62 in Wt: 110 lbs BSA: 1.48 m2 HR: 98 bpm BP: 130 / 44 mmHg Heart Rhythm: Sinus Rhythm Technical Quality: Fair Exam Date: 04/25/2025 3:33 PM Patient Status: I Admit Date: 04/25/2025 Exam Type: CA echo doppler w bubble study Complete two-dimensional, color flow and Doppler transthoracic echocardiogram is performed with agitated saline. Staff Referring Physician: Peewee Mendez MD Retoucher Photoengraving: Libra Mendoza Attending Provider: Martín Guevara MD Contrast/Agitated Saline Contrast/Ag. Saline: Agitated Saline Amount: 20.00 ml Existing IV Access: Yes IV Access Condition: patent with no signs of infiltration Summary 1. Left ventricular chamber dimension is normal. 2. Left ventricular systolic function is hyperdynamic, estimated at >70. 3. There is no increased left ventricular wall thickness. 4. The left ventricular diastolic function is grade II diastolic dysfunction. 5. Suspected patent foramen ovale visualized by color flow and agitated saline imaging. 6. A scant number of bubbles were seen on the left side after several cardiac cycles. This may be consistent with a tiny PFO or pulmonary AVM. 7. Cannot rule out aortic valve vegetation visualized. 8. The right coronary cusp appears to be thickened. 9. Recommend transesophageal echocardiogram to evaluate for possible PFO as well as the aortic valve to rule out vegetation. Left Ventricle Left ventricular chamber dimension is normal. Left ventricular systolic function is hyperdynamic, estimated at >70. There is no increased left ventricular wall thickness. The left ventricular diastolic function is grade II diastolic dysfunction. Right Ventricle Right ventricular chamber dimension is normal. Right ventricular systolic function is normal. Left Atria Left atrial chamber dimension is normal. Right Atria Right atrial chamber dimension is normal. Atrial Septum Suspected patent foramen ovale visualized by color flow and agitated saline imaging. A scant number of bubbles were seen on the left side after several cardiac cycles. This may be consistent with a tiny PFO or pulmonary AVM. Aortic Valve The aortic valve is trileaflet. There is no aortic valve stenosis. There is trace aortic valve regurgitation. Cannot rule out aortic valve vegetation visualized. The right coronary cusp appears to be thickened. Pulmonic Valve The pulmonic valve is normal. There is no pulmonic valve stenosis. There is trace pulmonic regurgitation. Mitral Valve The mitral valve has normal leaflets. There is no mitral valve stenosis. There is trace mitral valve regurgitation. Tricuspid Valve The tricuspid valve leaflets are normal. There is no significant tricuspid valve stenosis. There is trace tricuspid valve regurgitation. Other Findings Recommend transesophageal echocardiogram to evaluate for possible PFO as well as the aortic valve to rule out vegetation. Pericardium/Pleural The pericardium appears normal. Inferior Vena Cava Normal inferior vena cava with >50% collapse upon inspiration consistent with normal right atrial pressure, 5 mmHg. Aorta The aortic root size at the sinus of Valsalva is normal. Left Ventricular Outflow Tract Name Value Normal LVOT 2D LVOT Diameter 2.0 cm LVOT Doppler LVOT Peak Velocity 106 cm/s LVOT Peak Gradient 5 mmHg LVOT Mean Gradient 2 mmHg LVOT VTI 18 cm LVOT VTI/AV VTI Ratio 0.8 LVOT Stroke Volume 54 ml LVOT CO 5.3 l/min LVOT CI 3.6 l/min/m2 Pulmonic Valve Name Value Normal RVOT Doppler RVOT Peak Velocity 69 cm/s RVOT Peak Gradient 2 mmHg PV Doppler PV Peak Velocity 99 cm/s PV Peak Gradient 4 mmHg Mitral Valve Name Value Normal MV Diastolic Function MV E Peak Velocity 110 cm/s MV A Peak Velocity 78 cm/s MV E/A 1.4 MV Decel Time (PW) 185 ms MV Annular TDI MV E/e' (Septal) 11.2 MV E/e' (Lateral) 16.0 MV E/e' (Average) 13.6 Tricuspid Valve Name Value Normal Estimated PAP/RSVP RA Pressure 5 mmHg <=5 TV Annular TDI TV Lateral [place] s' Velocity 12.4 cm/s >=9.5 Aorta Name Value Normal Ascending Aorta Ao Root Diameter (MM) 2.8 cm Ao Root Diam Index (MM) 1.9 cm/m2 Aortic Valve Name Value Normal AV Doppler AV Peak Velocity 136 cm/s AV Peak Gradient 7 mmHg AV Mean Gradient 4 mmHg AV VTI 23 cm AV Area (Cont Eq VTI) 2.3 cm2 >=3.0 AV Area (Cont Eq [place]) 2.4 cm2 AV DI ([place]) 0.78 AV Regurgitation 2D LVOT Area 3.0 cm2 Ventricles Name Value Normal LV Dimensions 2D/MM IVS Diastolic Thickness (2D) 0.8 cm 0.6-1.0 LVID Diastole (2D) 3.4 cm 3.8-5.2 LVIW Diastolic Thickness (2D) 0.8 cm 0.6-0.9 LVID Systole (2D) 2.2 cm 2.2-3.5 LVOT Diameter 2.0 cm LV Mass (2D Cubed) 75.29 g 67.00-162.00 LV Mass Index (2D Cubed) 51 g/m2 43-95 Relative Wall Thickness (2D) 0.48 <=0.42 LV Fractional Shortening/Ejection Fraction 2D/MM LV Fractional Shortening (2D) 35 % 27-45 LV EF (2D Teichholz) 66 % LV Diastolic Volume (4C MOD) 40 ml LV EF (4C MOD) 77 % LV Diastolic Volume (2C MOD) 45 ml LV EF (2C MOD) 75 % LV Diastolic Volume (BP MOD) 42 ml 46-106 LV Diastolic Volume Index (BP MOD) 29 ml/m2 29-61 LV Systolic Volume (BP MOD) 10 ml 14-42 LV Systolic Volume Index (BP MOD) 7 ml/m2 8-24 LV EF (BP MOD) 76 % 54-74 LV Diastolic Length (4C) 7.0 cm LV Systolic Length (4C) 5.3 cm LV Stroke Volume (4C MOD) 31 ml Atria Name Value Normal LA Dimensions LA Dimension (MM) 3.1 cm 2.7-3.8 LA Volume (4C A-L) 28 ml LA Volume (BP A-L) 26 ml RA Dimensions RA Area (4C) 9.3 cm2 <=18.0 Report Signatures
[2025-04-25 13:49] LABS: Anion Gap 16 mmol/L (4-12); Blood Urea Nitrogen 52 mg/dL (7-17); Calcium 8.2 mg/dL (8.4-10.2); Carbon Dioxide 13 mmol/L (22-30); Chloride 105 mmol/L (98-107); Estimated CRCL calculation 22 ml/min; Estimated Glomerular Filt Rate 29; Glucose 984 mg/dL (65-110); Potassium 3.5 mmol/L (3.4-5.0); Sodium 134 mmol/L (137-145)
[2025-04-25 13:59] LABS: Influenza A QL RT-PCR Negative (Negative); Influenza B QL RT-PCR Negative (Negative); RSV RNA, RT-PCR Negative (Negative); SARS-CoV-2 RNA PCR Negative (Negative)
[2025-04-25 14:35] LABS: MRSA (PCR) NOT DETECTED (NOT DETECTE)
[2025-04-25 16:06] LABS: Glucose 786 mg/dL (65-110)
[2025-04-25 16:27] LABS: Cannabinoid Screen Urine Negative (Negative)
[2025-04-25] MEDS: INSULIN HUMAN REGULAR (*BKC) 100 UNITS in SODIUM CHLORIDE 0.9% IV 99 ML 30.5 UNITS IV CONT (17:15)
[2025-04-25 18:13] LABS: Anion Gap 8 mmol/L (4-12); Blood Urea Nitrogen 51 mg/dL (7-17); Calcium 8.7 mg/dL (8.4-10.2); Carbon Dioxide 18 mmol/L (22-30); Chloride 114 mmol/L (98-107); Estimated CRCL calculation 28 ml/min; Estimated Glomerular Filt Rate 38; Glucose 518 mg/dL (65-110); Potassium 2.9 mmol/L (3.4-5.0); Sodium 140 mmol/L (137-145)
[2025-04-25] MEDS: INSULIN HUMAN REGULAR (*BKC) 100 UNITS in SODIUM CHLORIDE 0.9% IV 99 ML 34 UNITS IV CONT (20:27)
[2025-04-25 22:15] LABS: Anion Gap 8 mmol/L (4-12); Blood Urea Nitrogen 48 mg/dL (7-17); Calcium 8.8 mg/dL (8.4-10.2); Carbon Dioxide 17 mmol/L (22-30); Chloride 119 mmol/L (98-107); Estimated CRCL calculation 30 ml/min; Estimated Glomerular Filt Rate 42; Glucose 152 mg/dL (65-110); Potassium 2.7 mmol/L (3.4-5.0); Sodium 144 mmol/L (137-145)
[2025-04-25] MEDS: INSULIN GLARGINE (*BKC) 100 UNITS/ML 15 UNITS SUB-Q (22:41)
[2025-04-25] MEDS: KCL 20 MEQ/0.45% NS 1,000 ML 100 ML IV CONT (22:47)
[2025-04-26] VITALS (25 sets, daily range): BP systolic 93–146; BP diastolic 50–83; PULSE 67–105; RESP 16–24; TEMP 35.1–37.6; O2SAT 85–100
[2025-04-26] MEDS: DEXTROSE 50% 25 GM/50 ML SYRINGE IV PUSH (00:10)
[2025-04-26] MEDS: POTASSIUM CHLORIDE INJ 40 MEQ in SODIUM CHLORIDE 0.9% IV 500 ML 130 MEQ IVPB (00:20)
[2025-04-26] MEDS: POTASSIUM PHOS,M-BASIC-D-BASIC 20 MMOL in SODIUM CHLORIDE 0.9% IV 250 ML 64.17 MMOL IVPB (04:23)
[2025-04-26 06:53] LABS: Hematocrit 41.1 % (37.0-47.0); Hemoglobin 13.0 g/dL (12.0-15.0); Immature Granulocyte Percent A 1.3 % (0-0.5); Lymphocytes Absolute Auto 1.43 K/mm3 (0.9-3.2); Mean Corpuscular HGB Conc 31.6 g/dl (32-36); Mean Corpuscular Hemoglobin 29.7 pg (26-34); Mean Corpuscular Volume 93.8 fl (80-100); Nucleated Red Blood Cells Absolute Auto 0.000 K/mm3 (0.0-0.012); Nucleated Red Blood Cells Perc 0.0 % (0.0-0.2); Platelet Count Result 245 k/mm3 (150-375); Red Blood Count 4.38 M/mm3 (4.2-5.4); White Blood Count 28.1 K/mm3 (4.5-10.0)
[2025-04-26 06:58] LABS: Cholesterol 124 mg/dL (0-200); HDL Direct 59 mg/dL; Magnesium 2.2 mg/dL (1.6-2.3); Triglycerides 80 mg/dL (<150)
[2025-04-26] MEDS: ATORVASTATIN 40 MG TABLET 80 MG PO (08:31)
[2025-04-26] MEDS: ASPIRIN 325 MG ENTERIC TABLET PO (08:31)
[2025-04-26] MEDS: ENOXAPARIN 40 MG/0.4 ML SYRINGE SUB-Q (08:35)
[2025-04-26] MEDS: CEFEPIME 1 GM in SODIUM CHLORIDE 0.9% IV 50 ML 100 ML IVPB ×2 (08:35→21:27)
[2025-04-26] MEDS: PANTOPRAZOLE SODIUM IV 40 MG VIAL IV PUSH (08:35)
[2025-04-26] MEDS: KCL 20 MEQ/0.45% NS 1,000 ML 100 ML IV CONT (08:37)
--- NOTE | 2025-04-26 09:16 | P.PNINT_ITS ---
Assessment and Plan Assessment and Plan (1) DKA (diabetic ketoacidosis): Qualifiers: Diabetes mellitus complication detail: without coma Diabetes mellitus type: type 2 Qualified Code(s): E11.10 - Type 2 diabetes mellitus with ketoacidosis without coma Code(s): E11.10 - Type 2 diabetes mellitus with ketoacidosis without coma Status: Acute Assessment and Plan: On presentation her Lab work was consistent with DKA. Patient also appears dehydration hypovolemia Pt was given IVF bolus and will be started on infusion Insulin infusion started and Q1H glucose monitoring is being done Serial labs were done Her anion gap was closed and she has been transition to subcutaneous insulin. Consult dietitian and clinical unit educator Start diet at depending on speech therapy consult (2) Encephalopathy: Code(s): G93.40 - Encephalopathy, unspecified Status: Acute Assessment and Plan: Encephalopathy likely secondary to DKA. Symptoms have improved and she is now AO x3 Ammonia and TSH normal Head CT shows possible left occipital subacute infarct Will obtain MRI Consult nephrology (3) Sepsis: Code(s): A41.9 - Sepsis, unspecified organism Status: Acute Assessment and Plan: Patient meets criteria with sepsis although there is no focal source of infection heparin at this time UA and chest x-ray negative Patient given empiric vancomycin and cefepime in the ER which will be continued Blood cultures drawn Her procalcitonin level was elevated He echo suggest aortic root vegetation. Will obtain LORI (4) CVA (cerebral vascular accident): Qualifiers: CVA mechanism: unspecified Qualified Code(s): I63.9 - Cerebral infarction, unspecified Code(s): I63.9 - Cerebral infarction, unspecified Status: Acute Assessment and Plan: Head CT shows left occipital infarct probably subacute. Will obtain MRI for further evaluation Consult speech for swallow evaluation Consult neurology Aspirin and statin (5) Elevated serum creatinine: Code(s): R79.89 - Other specified abnormal findings of blood chemistry Status: Acute Assessment and Plan: Presented with elevated serum creatinine 1.9 Baseline unknown but I suspect patient has chronic kidney disease as evidenced by elevated phosphate level Check urine sodium creatinine CK level was 386 Monitor urine output electrolytes and creatinine Negative renal ultrasound Creatinine improved to 1.28 (6) Electrolyte abnormality: Code(s): E87.8 - Other disorders of electrolyte and fluid balance, not elsewhere classified Status: Acute Assessment and Plan: Patient getting potassium and phosphate replacement. Repeat labs ordered and pending Plan DVT prophylaxis -Lovenox Nutrition -speech therapy consult Code Status - Full Code Spoke to and updated pts daughter by phone Transfer out ICU today Subjective Date/time seen: 04/26/25 Much more awake this morning. She is AO x3. She denies any complaints except cough which is chronic. She states that she does not know what happened and why she is in the hospital. She does not removing sick. She does claim that she was compliant with her insulin. She is not hungry at this time. All the systems were reviewed and were negative. Insulin drip was transition to subcutaneous insulin. Review of Systems Review of Systems: All systems reviewed & are unremarkable except as noted in HPI and below (HPI) Exam Narrative: General: Awake alert Lungs/Chest: Trachea central Clear BS B/L, No crackles or wheezing. Cardiac: RRR. Normal S1 S2. No murmurs Circulation: Pedal pulses are intact and symmetrical. Abdomen: Normal bowel sounds.. Soft. NT. ND. Extremities: No clubbing, cyanosis or edema. Warm : Sanchez in place Neurologic: Awake alert this morning AO x3, moves all 4 extremities, follows commands all 4 extremities. Skin: No Rash HEENT: Oral mucosa is dry Objective Data Vital Signs Vital Signs: Vital Signs - 24 hr 04/25/25 09:45 04/25/25 09:45 04/25/25 10:04 Temperature 34.8 C L 34.7 C L 34.8 C L Pulse Rate 91 Respiratory Rate 24 H Blood Pressure 114/61 Pulse Oximetry 99 Oxygen Delivery Oxygen Flow Rate Fraction of Inspired Oxygen 04/25/25 10:04 04/25/25 10:33 04/25/25 10:33 Temperature 35.0 C L 35.0 C L Pulse Rate 90 98 Respiratory Rate 28 H 18 Blood Pressure 114/61 90/49 L Pulse Oximetry 98 100 Oxygen Delivery Oxygen Flow Rate Fraction of Inspired Oxygen 04/25/25 11:01 04/25/25 11:01 04/25/25 11:16 Temperature 35.6 C L 35.6 C L 35.8 C L Pulse Rate 97 100 Respiratory Rate 20 90 H Blood Pressure 90/49 L 91/49 L Pulse Oximetry 98 Oxygen Delivery Oxygen Flow Rate Fraction of Inspired Oxygen 04/25/25 11:30 04/25/25 12:18 04/25/25 12:20 Temperature 36.3 C L 36.8 C 36.8 C Pulse Rate 97 Respiratory Rate 23 H Blood Pressure 107/54 L Pulse Oximetry 96 Oxygen Delivery Oxygen Flow Rate Fraction of Inspired Oxygen 04/25/25 12:22 04/25/25 12:30 04/25/25 13:00 Temperature 36.8 C 36.8 C 36.8 C Pulse Rate 97 97 Respiratory Rate 22 H 18 Blood Pressure 107/54 L 115/57 L Pulse Oximetry 99 97 Oxygen Delivery Oxygen Flow Rate Fraction of Inspired Oxygen 04/25/25 13:50 04/25/25 14:00 04/25/25 15:00 Temperature 36.8 C 36.7 C Pulse Rate 98 Respiratory Rate 18 Blood Pressure 130/44 L 95/78 L Pulse Oximetry 98 96 Oxygen Delivery Room Air Oxygen Flow Rate Fraction of Inspired Oxygen 04/25/25 16:00 04/25/25 16:00 04/25/25 16:00 Temperature 36.9 C Pulse Rate 90 87 Respiratory Rate 19 Blood Pressure 108/51 L Pulse Oximetry 96 Oxygen Delivery Room Air Oxygen Flow Rate Fraction of Inspired Oxygen 04/25/25 17:00 04/25/25 18:00 04/25/25 18:00 Temperature 36.8 C 36.8 C Pulse Rate 84 85 85 Respiratory Rate 19 19 Blood Pressure 117/52 L 105/45 L Pulse Oximetry 97 98 Oxygen Delivery Oxygen Flow Rate Fraction of Inspired Oxygen 04/25/25 19:00 04/25/25 20:00 04/25/25 20:00 Temperature 36.8 C 36.5 C Pulse Rate 85 86 Respiratory Rate 19 19 Blood Pressure 130/52 L 108/49 L Pulse Oximetry 97 Oxygen Delivery Room Air Oxygen Flow Rate Fraction of Inspired Oxygen 04/25/25 20:00 04/25/25 20:03 04/25/25 21:00 Temperature 36.3 C L Pulse Rate 87 89 73 Respiratory Rate 20 15 Blood Pressure 90/40 L Pulse Oximetry 98 97 Oxygen Delivery Room Air Oxygen Flow Rate Fraction of Inspired Oxygen 21 04/25/25 22:00 04/25/25 22:00 04/25/25 23:00 Temperature 36.2 C L 36.1 C L Pulse Rate 84 84 81 Respiratory Rate 19 20 Blood Pressure 91/56 L 93/58 L Pulse Oximetry 97 97 Oxygen Delivery Oxygen Flow Rate Fraction of Inspired Oxygen 04/26/25 00:00 04/26/25 00:00 04/26/25 00:00 Temperature 35.3 C L Pulse Rate 77 78 Respiratory Rate 20 Blood Pressure 110/58 L Pulse Oximetry 94 Oxygen Delivery Room Air Oxygen Flow Rate Fraction of Inspired Oxygen 04/26/25 00:28 04/26/25 00:43 04/26/25 00:58 Temperature 35.1 C L 35.1 C L 35.3 C L Pulse Rate Respiratory Rate Blood Pressure Pulse Oximetry Oxygen Delivery Oxygen Flow Rate Fraction of Inspired Oxygen 04/26/25 01:00 04/26/25 01:13 04/26/25 01:28 Temperature 35.3 C L 35.3 C L 35.6 C L Pulse Rate 84 Respiratory Rate 16 Blood Pressure 102/56 L Pulse Oximetry 96 Oxygen Delivery Oxygen Flow Rate Fraction of Inspired Oxygen 04/26/25 01:58 04/26/25 02:00 04/26/25 02:00 Temperature 36.0 C L 36.2 C L Pulse Rate 88 88 Respiratory Rate 24 H Blood Pressure 93/50 L Pulse Oximetry 96 Oxygen Delivery Oxygen Flow Rate Fraction of Inspired Oxygen 04/26/25 02:19 04/26/25 03:00 04/26/25 04:00 Temperature 36.3 C L 36.6 C Pulse Rate 93 Respiratory Rate 20 Blood Pressure 105/54 L Pulse Oximetry 94 Oxygen Delivery Room Air Oxygen Flow Rate Fraction of Inspired Oxygen 04/26/25 04:00 04/26/25 04:00 04/26/25 05:00 Temperature 36.5 C 36.8 C Pulse Rate 90 79 85 Respiratory Rate 20 17 Blood Pressure 126/62 133/63 Pulse Oximetry 93 97 Oxygen Delivery Oxygen Flow Rate Fraction of Inspired Oxygen 04/26/25 05:50 04/26/25 05:54 04/26/25 06:00 Temperature Pulse Rate 88 Respiratory Rate Blood Pressure Pulse Oximetry 85 L 93 Oxygen Delivery Room Air Nasal Cannula Oxygen Flow Rate 2 Fraction of Inspired Oxygen 04/26/25 06:00 04/26/25 07:00 04/26/25 08:00 Temperature 37.0 C 37.3 C 37.4 C Pulse Rate 88 90 93 Respiratory Rate 17 17 19 Blood Pressure 101/51 L 141/65 H 113/61 Pulse Oximetry 98 96 99 Oxygen Delivery Oxygen Flow Rate Fraction of Inspired Oxygen 04/26/25 09:00 Temperature 37.6 C Pulse Rate 95 Respiratory Rate 22 H Blood Pressure 128/63 Pulse Oximetry 96 Oxygen Delivery Oxygen Flow Rate Fraction of Inspired Oxygen Intake/Output Intake/Output: Intake & Output 04/23/25 04/24/25 04/25/25 04/26/25 23:59 23:59 23:59 23:59 Intake Total 4326.7 1503.3 Output Total 1550 200 Balance 2776.7 1303.3 Meds/Results Medications: Active Medications Generic Name Dose Route Start Last Admin Trade Name Freq PRN Reason Stop Dose Admin Aspirin 325 mg 04/26/25 09:00 04/26/25 08:31 Aspirin 325 Mg Enteric Tablet PO 325 mg QAM [place] Administration Atorvastatin Calcium 80 mg 04/26/25 09:00 04/26/25 08:31 Atorvastatin 40 Mg Tablet PO 80 mg DAILY [place] Administration Dextrose 12.5 gm 04/25/25 09:42 04/26/25 00:10 Dextrose 50% 25 Gm/50 Ml Syringe IV PUSH 12.5 gm PRN PRN Administration Hypoglycemia Protocol Enoxaparin Sodium 40 mg 04/26/25 09:00 04/26/25 08:35 Enoxaparin 40 Mg/0.4 Ml Syringe SUB-Q 40 mg DAILY [place] Administration Glucagon 1 mg 04/25/25 09:42 Glucagon For Inj 1 Mg Vial IM PRN PRN Hypoglycemia Protocol Glucose 15 gm 04/25/25 09:42 Glucose Oral Gel 15 Gm Of Glucse In 37.5 Gm Tube PO PRN PRN Hypoglycemia Protocol Dextrose 1,000 mls @ 100 mls/hr 04/25/25 09:42 Dextrose 5% 1,000 Ml IVPB PRN PRN Hypoglycemia Protocol Cefepime HCl 1 gm/ Sodium 50 mls @ 100 mls/hr 04/25/25 21:00 04/26/25 08:35 Chloride IVPB 100 mls/hr Q12H [place] Administration Potassium Chloride/Sodium Chloride 1,000 mls @ 100 mls/hr 04/25/25 22:35 04/26/25 08:37 Kcl 20 Meq/0.45% Ns IV CONT 100 mls/hr .Q10H [place] Administration Insulin Aspart 3 - 6 units 04/26/25 01:00 04/26/25 08:08 Insulin Aspart (*Bkc) 100 Units/Ml SUB-Q Not Given Q4HR [place] Protocol Insulin Glargine 10 units 04/26/25 21:00 Insulin Glargine (*Bkc) 100 Units/Ml SUB-Q HS [place] Pantoprazole Sodium 40 mg 04/26/25 09:00 04/26/25 08:35 Pantoprazole Sodium Iv 40 Mg Vial IV PUSH 40 mg QAM [place] Administration Perflutren Lipid Microsphere 0 ml 04/25/25 13:41 Perflutren Lipid Microspheres 1.5 Ml Vial Diluted To 10 Ml Total Volume IV PUSH 04/28/25 13:41 ONCE PRN adequate visualization Protocol Vancomycin HCl 1 each 04/25/25 10:57 Vancomycin For Acute Kidney Injury IVPB PRN PRN Vancomycin Protocol Radiology Results: ITS Impressions Cervical Spine CT 04/25/25 09:27 IMPRESSION: HEAD: 1. 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 Consider MRI, if able. 2. No intracerebral hemorrhage. C-SPINE: 1. No acute fracture. Head CT 04/25/25 09:27 IMPRESSION: HEAD: 1. 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 Consider MRI, if able. 2. No intracerebral hemorrhage. C-SPINE: 1. No acute fracture. Chest X-Ray 04/25/25 09:36 IMPRESSION: 1. No acute cardiopulmonary disease. Pelvis X-Ray 04/25/25 09:36 Impression: No acute fracture or malalignment. Renal Ultrasound 04/25/25 12:55 IMPRESSION: 1. Normal kidneys without hydronephrosis. Labs Labs: Laboratory Results - last 24 hr 04/25/25 04/25/25 04/25/25 09:06 09:07 09:07 WBC 22.6 H RBC 4.56 Hgb 13.5 Hct 43.4 MCV 95.2 MCH 29.6 MCHC 31.1 L RDW 13.2 Plt Count 295 MPV 11.9 H Immature Gran % (Auto) 2.8 H Neut % (Auto) 83.6 H Lymph % (Auto) 6.[address] [place] % (Auto) 6.1 Eos % (Auto) 0.0 Baso % (Auto) 0.7 Lymph # (Auto) 1.53 [place] # (Auto) 1.4 H Eos # (Auto) 0.0 Baso # (Auto) 0.2 H Abs Immat Gran (auto) 0.64 H Absolute Neuts (auto) 18.9 H Absolute Nucleated RBC 0.000 Nucleated RBC % 0.0 Sodium 130 L Potassium 4.8 Chloride 93 L Carbon Dioxide 10 L Anion Gap 27 H BUN 49 H Creatinine 1.90 H Estim Creat Clear Calc 21 Estimated GFR 26 L Glucose 1226 H* POC Capillary Glucose Hemoglobin A1c Lactic Acid 6.4 H* Calcium 8.8 Phosphorus 7.6 H Magnesium 2.2 Total Bilirubin 0.6 AST 38 H ALT 31 Alkaline Phosphatase 148 H Ammonia Total Creatine Kinase Troponin I 0.102 H* Cancelled Total Protein 6.6 Albumin 3.9 Triglycerides Cholesterol LDL Cholesterol Direct HDL Direct Procalcitonin TSH (Reflex) Urine Color Yellow Urine Appearance Clear Urine pH 5.0 Ur Specific [place] 1.028 Urine Protein Negative Urine Glucose (UA) 3+ H Urine Ketones 1+ H Ur Blood (Man) Negative Urine Nitrate Negative Urine Bilirubin Negative Urine Urobilinogen 0.2 Leukocyte Esterase Rfl Negative Ur Random Sodium 9 Urine Creatinine 34.5 Nasal MRSA (PCR) Random Vancomycin Urine Opiates Screen Negative Urine Methadone Screen Negative Ur Barbiturates Screen Negative Ur Phencyclidine Scrn Negative Ur Amphetamine Screen Negative U Benzodiazepines Scrn Negative Urine Cocaine Screen Negative U Cannabinoids Screen Negative Ethyl Alcohol Influenza A (RT-PCR) Influenza B (RT-PCR) RSV (RT-PCR) SARS-CoV-2 RNA (RT-PCR) 04/25/25 04/25/25 04/25/25 09:08 10:17 11:42 WBC RBC Hgb Hct MCV MCH MCHC RDW Plt Count MPV Immature Gran % (Auto) Neut % (Auto) Lymph % (Auto) [place] % (Auto) Eos % (Auto) Baso % (Auto) Lymph # (Auto) [place] # (Auto) Eos # (Auto) Baso # (Auto) Abs Immat Gran (auto) Absolute Neuts (auto) Absolute Nucleated RBC Nucleated RBC % Sodium Potassium Chloride Carbon Dioxide Anion Gap BUN Creatinine Estim Creat Clear Calc Estimated GFR Glucose POC Capillary Glucose > 500 H* > 500 H* Hemoglobin A1c 9.9 H Lactic Acid Calcium Phosphorus Magnesium Total Bilirubin AST ALT Alkaline Phosphatase Ammonia < 9 L Total Creatine Kinase Troponin I Total Protein Albumin Triglycerides Cholesterol LDL Cholesterol Direct HDL Direct Procalcitonin TSH (Reflex) 2.360 Urine Color Urine Appearance Urine pH Ur Specific [place] Urine Protein Urine Glucose (UA) Urine Ketones Ur Blood (Man) Urine Nitrate Urine Bilirubin Urine Urobilinogen Leukocyte Esterase Rfl Ur Random Sodium Urine Creatinine Nasal MRSA (PCR) Random Vancomycin Urine Opiates Screen Urine Methadone Screen Ur Barbiturates Screen Ur Phencyclidine Scrn Ur Amphetamine Screen U Benzodiazepines Scrn Urine Cocaine Screen U Cannabinoids Screen Ethyl Alcohol < 10 Influenza A (RT-PCR) Influenza B (RT-PCR) RSV (RT-PCR) SARS-CoV-2 RNA (RT-PCR) 04/25/25 04/25/25 04/25/25 11:45 12:13 12:48 WBC RBC Hgb Hct MCV MCH MCHC RDW Plt Count MPV Immature Gran % (Auto) Neut % (Auto) Lymph % (Auto) [place] % (Auto) Eos % (Auto) Baso % (Auto) Lymph # (Auto) [place] # (Auto) Eos # (Auto) Baso # (Auto) Abs Immat Gran (auto) Absolute Neuts (auto) Absolute Nucleated RBC Nucleated RBC % Sodium 132 L 134 L Potassium 3.6 3.5 Chloride 105 105 Carbon Dioxide 9 L 13 L Anion Gap 18 H 16 H BUN 50 H 52 H Creatinine 1.75 H 1.76 H Estim Creat Clear Calc 22 22 Estimated GFR 29 L 29 L Glucose 1063 H* 984 H* POC Capillary Glucose > 500 H* Hemoglobin A1c Lactic Acid 3.5 H Calcium 8.1 L 8.2 L Phosphorus Magnesium Total Bilirubin AST ALT Alkaline Phosphatase Ammonia Total Creatine Kinase 386 H Troponin I Total Protein Albumin Triglycerides Cholesterol LDL Cholesterol Direct HDL Direct Procalcitonin 16.8 TSH (Reflex) Urine Color Urine Appearance Urine pH Ur Specific [place] Urine Protein Urine Glucose (UA) Urine Ketones Ur Blood (Man) Urine Nitrate Urine Bilirubin Urine Urobilinogen Leukocyte Esterase Rfl Ur Random Sodium Urine Creatinine Nasal MRSA (PCR) Random Vancomycin Urine Opiates Screen Urine Methadone Screen Ur Barbiturates Screen Ur Phencyclidine Scrn Ur Amphetamine Screen U Benzodiazepines Scrn Urine Cocaine Screen U Cannabinoids Screen Ethyl Alcohol Influenza A (RT-PCR) Influenza B (RT-PCR) RSV (RT-PCR) SARS-CoV-2 RNA (RT-PCR) 04/25/25 04/25/25 04/25/25 13:16 13:52 14:59 WBC RBC Hgb Hct MCV MCH MCHC RDW Plt Count MPV Immature Gran % (Auto) Neut % (Auto) Lymph % (Auto) [place] % (Auto) Eos % (Auto) Baso % (Auto) Lymph # (Auto) [place] # (Auto) Eos # (Auto) Baso # (Auto) Abs Immat Gran (auto) Absolute Neuts (auto) Absolute Nucleated RBC Nucleated RBC % Sodium Potassium Chloride Carbon Dioxide Anion Gap BUN Creatinine Estim Creat Clear Calc Estimated GFR Glucose POC Capillary Glucose > 500 H* > 500 H* Hemoglobin A1c Lactic Acid Calcium Phosphorus Magnesium Total Bilirubin AST ALT Alkaline Phosphatase Ammonia Total Creatine Kinase Troponin I Total Protein Albumin Triglycerides Cholesterol LDL Cholesterol Direct HDL Direct Procalcitonin TSH (Reflex) Urine Color Urine Appearance Urine pH Ur Specific [place] Urine Protein Urine Glucose (UA) Urine Ketones Ur Blood (Man) Urine Nitrate Urine Bilirubin Urine Urobilinogen Leukocyte Esterase Rfl Ur Random Sodium Urine Creatinine Nasal MRSA (PCR) Not detected Random Vancomycin Urine Opiates Screen Urine Methadone Screen Ur Barbiturates Screen Ur Phencyclidine Scrn Ur Amphetamine Screen U Benzodiazepines Scrn Urine Cocaine Screen U Cannabinoids Screen Ethyl Alcohol Influenza A (RT-PCR) Negative Influenza B (RT-PCR) Negative RSV (RT-PCR) Negative SARS-CoV-2 RNA (RT-PCR) Negative 04/25/25 04/25/25 04/25/25 15:11 16:17 17:01 WBC RBC Hgb Hct MCV MCH MCHC RDW Plt Count MPV Immature Gran % (Auto) Neut % (Auto) Lymph % (Auto) [place] % (Auto) Eos % (Auto) Baso % (Auto) Lymph # (Auto) [place] # (Auto) Eos # (Auto) Baso # (Auto) Abs Immat Gran (auto) Absolute Neuts (auto) Absolute Nucleated RBC Nucleated RBC % Sodium Potassium Chloride Carbon Dioxide Anion Gap BUN Creatinine Estim Creat Clear Calc Estimated GFR Glucose 786 H* POC Capillary Glucose > 500 H* > 500 H* Hemoglobin A1c Lactic Acid Calcium Phosphorus Magnesium Total Bilirubin AST ALT Alkaline Phosphatase Ammonia Total Creatine Kinase Troponin I Total Protein Albumin Triglycerides Cholesterol LDL Cholesterol Direct HDL Direct Procalcitonin TSH (Reflex) Urine Color Urine Appearance Urine pH Ur Specific [place] Urine Protein Urine Glucose (UA) Urine Ketones Ur Blood (Man) Urine Nitrate Urine Bilirubin Urine Urobilinogen Leukocyte Esterase Rfl Ur Random Sodium Urine Creatinine Nasal MRSA (PCR) Random Vancomycin Urine Opiates Screen Urine Methadone Screen Ur Barbiturates Screen Ur Phencyclidine Scrn Ur Amphetamine Screen U Benzodiazepines Scrn Urine Cocaine Screen U Cannabinoids Screen Ethyl Alcohol Influenza A (RT-PCR) Influenza B (RT-PCR) RSV (RT-PCR) SARS-CoV-2 RNA (RT-PCR) 04/25/25 04/25/25 04/25/25 17:51 18:01 19:00 WBC RBC Hgb Hct MCV MCH MCHC RDW Plt Count MPV Immature Gran % (Auto) Neut % (Auto) Lymph % (Auto) [place] % (Auto) Eos % (Auto) Baso % (Auto) Lymph # (Auto) [place] # (Auto) Eos # (Auto) Baso # (Auto) Abs Immat Gran (auto) Absolute Neuts (auto) Absolute Nucleated RBC Nucleated RBC % Sodium 140 Potassium 2.9 L Chloride 114 H Carbon Dioxide 18 L Anion Gap 8 BUN 51 H Creatinine 1.38 H Estim Creat Clear Calc 28 Estimated GFR 38 L Glucose 518 H* POC Capillary Glucose 443 H 371 H Hemoglobin A1c Lactic Acid Calcium 8.7 Phosphorus Magnesium Total Bilirubin AST ALT Alkaline Phosphatase [place]monia Total Creatine Kinase Troponin I Total Protein Albumin Triglycerides Cholesterol LDL Cholesterol Direct HDL Direct Procalcitonin TSH (Reflex) Urine Color Urine Appearance Urine pH Ur Specific [place] Urine Protein Urine Glucose (UA) Urine Ketones Ur Blood (Man) Urine Nitrate Urine Bilirubin Urine Urobilinogen Leukocyte Esterase Rfl Ur Random Sodium Urine Creatinine Nasal MRSA (PCR) Random Vancomycin Urine Opiates Screen Urine Methadone Screen Ur Barbiturates Screen Ur Phencyclidine Scrn Ur Amphetamine Screen U Benzodiazepines Scrn Urine Cocaine Screen U Cannabinoids Screen Ethyl Alcohol Influenza A (RT-PCR) Influenza B (RT-PCR) RSV (RT-PCR) SARS-CoV-2 RNA (RT-PCR) 04/25/25 04/25/25 04/25/25 20:26 21:34 21:43 WBC RBC Hgb Hct MCV MCH MCHC RDW Plt Count MPV Immature Gran % (Auto) Neut % (Auto) Lymph % (Auto) [place] % (Auto) Eos % (Auto) Baso % (Auto) Lymph # (Auto) [place] # (Auto) Eos # (Auto) Baso # (Auto) Abs Immat Gran (auto) Absolute Neuts (auto) Absolute Nucleated RBC Nucleated RBC % Sodium 144 Potassium 2.7 L* Chloride 119 H Carbon Dioxide 17 L Anion Gap 8 BUN 48 H Creatinine 1.28 H Estim Creat Clear Calc 30 Estimated GFR 42 L Glucose 152 H POC Capillary Glucose 234 H 144 H Hemoglobin A1c Lactic Acid Calcium 8.8 Phosphorus 2.2 L Magnesium Total Bilirubin AST ALT Alkaline Phosphatase Ammonia Total Creatine Kinase Troponin I Total Protein Albumin Triglycerides Cholesterol LDL Cholesterol Direct HDL Direct Procalcitonin TSH (Reflex) Urine Color Urine Appearance Urine pH Ur Specific [place] Urine Protein Urine Glucose (UA) Urine Ketones Ur Blood (Man) Urine Nitrate Urine Bilirubin Urine Urobilinogen Leukocyte Esterase Rfl Ur Random Sodium Urine Creatinine Nasal MRSA (PCR) Random Vancomycin Urine Opiates Screen Urine Methadone Screen Ur Barbiturates Screen Ur Phencyclidine Scrn Ur Amphetamine Screen U Benzodiazepines Scrn Urine Cocaine Screen U Cannabinoids Screen Ethyl Alcohol Influenza A (RT-PCR) Influenza B (RT-PCR) RSV (RT-PCR) SARS-CoV-2 RNA (RT-PCR) 04/26/25 04/26/25 04/26/25 00:07 00:30 01:03 WBC RBC Hgb Hct MCV MCH MCHC RDW Plt Count MPV Immature Gran % (Auto) Neut % (Auto) Lymph % (Auto) [place] % (Auto) Eos % (Auto) Baso % (Auto) Lymph # (Auto) [place] # (Auto) Eos # (Auto) Baso # (Auto) Abs Immat Gran (auto) Absolute Neuts (auto) Absolute Nucleated RBC Nucleated RBC % Sodium Potassium Chloride Carbon Dioxide Anion Gap BUN Creatinine Estim Creat Clear Calc Estimated GFR Glucose POC Capillary Glucose < 20 L* 173 H 129 H Hemoglobin A1c Lactic Acid Calcium Phosphorus Magnesium Total Bilirubin AST ALT Alkaline Phosphatase [place]mon[place] Total Creatine Kinase Troponin I Total Protein Albumin Triglycerides Cholesterol LDL Cholesterol Direct HDL Direct Procalcitonin TSH (Reflex) Urine Color Urine Appearance Urine pH Ur Specific [place] Urine Protein Urine Glucose (UA) Urine Ketones Ur Blood (Man) Urine Nitrate Urine Bilirubin Urine Urobilinogen Leukocyte Esterase Rfl Ur Random Sodium Urine Creatinine Nasal MRSA (PCR) Random Vancomycin Urine Opiates Screen Urine Methadone Screen Ur Barbiturates Screen Ur Phencyclidine Scrn Ur Amphetamine Screen U Benzodiazepines Scrn Urine Cocaine Screen U Cannabinoids Screen Ethyl Alcohol Influenza A (RT-PCR) Influenza B (RT-PCR) RSV (RT-PCR) SARS-CoV-2 RNA (RT-PCR) 04/26/25 04/26/25 04/26/25 02:17 04:04 05:52 WBC RBC Hgb Hct MCV MCH MCHC RDW Plt Count MPV Immature Gran % (Auto) Neut % (Auto) Lymph % (Auto) [place] % (Auto) Eos % (Auto) Baso % (Auto) Lymph # (Auto) [place] # (Auto) Eos # (Auto) Baso # (Auto) Abs Immat Gran (auto) Absolute Neuts (auto) Absolute Nucleated RBC Nucleated RBC % Sodium Potassium Chloride Carbon Dioxide Anion Gap BUN Creatinine Estim Creat Clear Calc Estimated GFR Glucose POC Capillary Glucose 111 H 99 93 Hemoglobin A1c Lactic Acid Calcium Phosphorus Magnesium Total Bilirubin AST ALT Alkaline Phosphatase [place]mon[place] Total Creatine Kinase Troponin I Total Protein Albumin Triglycerides Cholesterol LDL Cholesterol Direct HDL Direct Procalcitonin TSH (Reflex) Urine Color Urine Appearance Urine pH Ur Specific [place] Urine Protein Urine Glucose (UA) Urine Ketones Ur Blood (Man) Urine Nitrate Urine Bilirubin Urine Urobilinogen Leukocyte Esterase Rfl Ur Random Sodium Urine Creatinine Nasal MRSA (PCR) Random Vancomycin Urine Opiates Screen Urine Methadone Screen Ur Barbiturates Screen Ur Phencyclidine Scrn Ur Amphetamine Screen U Benzodiazepines Scrn Urine Cocaine Screen U Cannabinoids Screen Ethyl Alcohol Influenza A (RT-PCR) Influenza B (RT-PCR) RSV (RT-PCR) SARS-CoV-2 RNA (RT-PCR) 04/26/25 04/26/25 04/26/25 06:24 06:27 08:04 WBC 28.1 H RBC 4.38 Hgb 13.0 Hct 41.1 MCV 93.8 MCH 29.7 MCHC 31.6 L RDW 12.8 Plt Count 245 MPV 10.9 H Immature Gran % (Auto) 1.3 H Neut % (Auto) 86.5 H Lymph % (Auto) 5.[address] [place] % (Auto) 6.8 Eos % (Auto) 0.0 Baso % (Auto) 0.3 Lymph # (Auto) 1.43 [place] # (Auto) 1.9 H Eos # (Auto) 0.0 Baso # (Auto) 0.1 Abs Immat Gran (auto) 0.37 H Absolute Neuts (auto) 24.3 H Absolute Nucleated RBC 0.000 Nucleated RBC % 0.0 Sodium Potassium Chloride Carbon Dioxide Anion Gap BUN Creatinine Estim Creat Clear Calc Estimated GFR Glucose POC Capillary Glucose 99 Hemoglobin A1c Lactic Acid Calcium Phosphorus Magnesium 2.2 Total Bilirubin AST ALT Alkaline Phosphatase [place]mon[place] Total Creatine Kinase Troponin I Total Protein Albumin Triglycerides 80 Cholesterol 124 LDL Cholesterol Direct 46 HDL Direct 59 Procalcitonin TSH (Reflex) Urine Color Urine Appearance Urine pH Ur Specific [place] Urine Protein Urine Glucose (UA) Urine Ketones Ur Blood (Man) Urine Nitrate Urine Bilirubin Urine Urobilinogen Leukocyte Esterase Rfl Ur Random Sodium Urine Creatinine Nasal MRSA (PCR) Random Vancomycin 5.9 L Urine Opiates Screen Urine Methadone Screen Ur Barbiturates Screen Ur Phencyclidine Scrn Ur Amphetamine Screen U Benzodiazepines Scrn Urine Cocaine Screen U Cannabinoids Screen Ethyl Alcohol Influenza A (RT-PCR) Influenza B (RT-PCR) RSV (RT-PCR) SARS-CoV-2 RNA (RT-PCR) Quality VTE Prophylaxis VTE prophylaxis: pharmacologic ordered
[2025-04-26 09:21] LABS: Alanine Aminotransferase 35 U/L (6-35); Albumin Level 3.2 g/dL (3.5-5.1); Alkaline Phosphatase 89 U/L (38-126); Anion Gap 8 mmol/L (4-12); Aspartate Amino Transferase 85 U/L (14-36); Bilirubin,Total 0.3 mg/dL (0.2-1.3); Blood Urea Nitrogen 46 mg/dL (7-17); Calcium 8.2 mg/dL (8.4-10.2); Carbon Dioxide 14 mmol/L (22-30); Chloride 122 mmol/L (98-107); Estimated CRCL calculation 37 ml/min; Estimated Glomerular Filt Rate 53; Glucose 120 mg/dL (65-110); Potassium 4.9 mmol/L (3.4-5.0); Sodium 144 mmol/L (137-145); Total Protein 6.1 g/dL (6.3-8.2)
[2025-04-26] MEDS: VANCOMYCIN HCL 1,000 MG in SODIUM CHLORIDE 0.9% IV 250 ML 250 MG IVPB (09:27)
--- NOTE | 2025-04-26 10:42 | WPDNEURCNPN ---
Consult date: 04/26/25 HPI: Urvashi Clifford is a 70 year old female admitted to the hospital through the emergency room with the complaints of change in the mental status and with inability to provide any meaningful history in the emergency room and also with a history that she was found on the ground floor at home with no specific witness of the fall. With no history of being allergic to any medications. Vital signs in the ER were normal except on the lower side of the blood pressure, initial CBC was WBC is 22.6, BMP with blood sugar of 1226 UA with glycosuria 3+ 1+ ketone urea hemoglobin A1c 9.9, serum ammonia level less than 9, alcohol level less than 10, CT scan of the head raising the possibility of left occipital infarct and CT of the cervical spine negative for the fracture, subsequently renal ultrasound negative without hydronephrosis, admitted to the ICU for the diabetic ketoacidosis and encephalopathy and also sepsis, echocardiogram raised the possibility of suspected patent foramina ovale with scant number of bubbles across for which transesophageal echocardiogram suggested. At present in ICU for the treatment of diabetic ketoacidosis. Review of Systems Review of Systems: All systems reviewed & are unremarkable except as noted in HPI and below PMFSH Past Medical History Medical History Tobacco smoker, 1 pack of cigarettes or less per day Diabetes mellitus Social History Social History Social History: Smokes marijuana daily, smokes 1 pack per day daily she has been smoking for long time. Drinks alcohol occasionally. Smoking status: Unknown if ever smoked Alcohol intake: unknown Substance use: unknown Substance use type: unknown Spiritual care concerns: No Meds Home Medications and Allergies Home Medications ?Medication ?Instructions ?Recorded ?Confirmed ?Type insulin aspart U-100 100 unit/mL 10 unit subcut TID 04/25/25 04/25/25 History (3 mL) subcutaneous pen (Novolog FlexPen U-100 Insulin aspart) insulin glargine 100 unit/mL (3 20 unit subcut QPM 04/25/25 04/25/25 History mL) subcutaneous pen (Lantus Solostar U-100 Insulin) Allergies Allergy/AdvReac Type Severity Reaction Status Date / Time No Known Allergies Allergy Verified 04/25/25 13:19 Vital Signs Vital Signs - 24 hr 04/25/25 11:01 04/25/25 11:01 04/25/25 11:16 Temperature 35.6 C L 35.6 C L 35.8 C L Pulse Rate 97 100 Respiratory Rate 20 90 H Blood Pressure 90/49 L 91/49 L Pulse Oximetry 98 Oxygen Delivery Oxygen Flow Rate Fraction of Inspired Oxygen 04/25/25 11:30 04/25/25 12:18 04/25/25 12:20 Temperature 36.3 C L 36.8 C 36.8 C Pulse Rate 97 Respiratory Rate 23 H Blood Pressure 107/54 L Pulse Oximetry 96 Oxygen Delivery Oxygen Flow Rate Fraction of Inspired Oxygen 04/25/25 12:22 04/25/25 12:30 04/25/25 13:00 Temperature 36.8 C 36.8 C 36.8 C Pulse Rate 97 97 Respiratory Rate 22 H 18 Blood Pressure 107/54 L 115/57 L Pulse Oximetry 99 97 Oxygen Delivery Oxygen Flow Rate Fraction of Inspired Oxygen 04/25/25 13:50 04/25/25 14:00 04/25/25 15:00 Temperature 36.8 C 36.7 C Pulse Rate 98 Respiratory Rate 18 Blood Pressure 130/44 L 95/78 L Pulse Oximetry 98 96 Oxygen Delivery Room Air Oxygen Flow Rate Fraction of Inspired Oxygen 04/25/25 16:00 04/25/25 16:00 04/25/25 16:00 Temperature 36.9 C Pulse Rate 90 87 Respiratory Rate 19 Blood Pressure 108/51 L Pulse Oximetry 96 Oxygen Delivery Room Air Oxygen Flow Rate Fraction of Inspired Oxygen 04/25/25 17:00 04/25/25 18:00 04/25/25 18:00 Temperature 36.8 C 36.8 C Pulse Rate 84 85 85 Respiratory Rate 19 19 Blood Pressure 117/52 L 105/45 L Pulse Oximetry 97 98 Oxygen Delivery Oxygen Flow Rate Fraction of Inspired Oxygen 04/25/25 19:00 04/25/25 20:00 04/25/25 20:00 Temperature 36.8 C 36.5 C Pulse Rate 85 86 Respiratory Rate 19 19 Blood Pressure 130/52 L 108/49 L Pulse Oximetry 97 Oxygen Delivery Room Air Oxygen Flow Rate Fraction of Inspired Oxygen 04/25/25 20:00 04/25/25 20:03 04/25/25 21:00 Temperature 36.3 C L Pulse Rate 87 89 73 Respiratory Rate 20 15 Blood Pressure 90/40 L Pulse Oximetry 98 97 Oxygen Delivery Room Air Oxygen Flow Rate Fraction of Inspired Oxygen 21 04/25/25 22:00 04/25/25 22:00 04/25/25 23:00 Temperature 36.2 C L 36.1 C L Pulse Rate 84 84 81 Respiratory Rate 19 20 Blood Pressure 91/56 L 93/58 L Pulse Oximetry 97 97 Oxygen Delivery Oxygen Flow Rate Fraction of Inspired Oxygen 04/26/25 00:00 04/26/25 00:00 04/26/25 00:00 Temperature 35.3 C L Pulse Rate 77 78 Respiratory Rate 20 Blood Pressure 110/58 L Pulse Oximetry 94 Oxygen Delivery Room Air Oxygen Flow Rate Fraction of Inspired Oxygen 04/26/25 00:28 04/26/25 00:43 04/26/25 00:58 Temperature 35.1 C L 35.1 C L 35.3 C L Pulse Rate Respiratory Rate Blood Pressure Pulse Oximetry Oxygen Delivery Oxygen Flow Rate Fraction of Inspired Oxygen 04/26/25 01:00 04/26/25 01:13 04/26/25 01:28 Temperature 35.3 C L 35.3 C L 35.6 C L Pulse Rate 84 Respiratory Rate 16 Blood Pressure 102/56 L Pulse Oximetry 96 Oxygen Delivery Oxygen Flow Rate Fraction of Inspired Oxygen 04/26/25 01:58 04/26/25 02:00 04/26/25 02:00 Temperature 36.0 C L 36.2 C L Pulse Rate 88 88 Respiratory Rate 24 H Blood Pressure 93/50 L Pulse Oximetry 96 Oxygen Delivery Oxygen Flow Rate Fraction of Inspired Oxygen 04/26/25 02:19 04/26/25 03:00 04/26/25 04:00 Temperature 36.3 C L 36.6 C Pulse Rate 93 Respiratory Rate 20 Blood Pressure 105/54 L Pulse Oximetry 94 Oxygen Delivery Room Air Oxygen Flow Rate Fraction of Inspired Oxygen 04/26/25 04:00 04/26/25 04:00 04/26/25 05:00 Temperature 36.5 C 36.8 C Pulse Rate 90 79 85 Respiratory Rate 20 17 Blood Pressure 126/62 133/63 Pulse Oximetry 93 97 Oxygen Delivery Oxygen Flow Rate Fraction of Inspired Oxygen 04/26/25 05:50 04/26/25 05:54 04/26/25 06:00 Temperature Pulse Rate 88 Respiratory Rate Blood Pressure Pulse Oximetry 85 L 93 Oxygen Delivery Room Air Nasal Cannula Oxygen Flow Rate 2 Fraction of Inspired Oxygen 04/26/25 06:00 04/26/25 07:00 04/26/25 08:00 Temperature 37.0 C 37.3 C 37.4 C Pulse Rate 88 90 93 Respiratory Rate 17 17 19 Blood Pressure 101/51 L 141/65 H 113/61 Pulse Oximetry 98 96 99 Oxygen Delivery Oxygen Flow Rate Fraction of Inspired Oxygen 04/26/25 08:00 04/26/25 08:00 04/26/25 09:00 Temperature 37.6 C Pulse Rate 91 95 Respiratory Rate 22 H Blood Pressure 128/63 Pulse Oximetry 96 96 Oxygen Delivery Room Air Oxygen Flow Rate Fraction of Inspired Oxygen 04/26/25 10:00 04/26/25 10:00 Temperature Pulse Rate 105 H 99 Respiratory Rate 18 Blood Pressure 142/63 H Pulse Oximetry 99 Oxygen Delivery Oxygen Flow Rate Fraction of Inspired Oxygen Results Labs 04/26/25 06:24 04/26/25 08:52 Labs: Short CBC 04/26/25 Range/Units 06:24 WBC 28.1 H (4.5-10.0) K/mm3 Hgb 13.0 (12.0-15.0) g/dL Hct 41.1 (37.0-47.0) % Plt Count 245 (150-375) k/mm3 BMP 04/25/25 04/25/25 04/25/25 11:45 12:48 15:11 Sodium 132 L 134 L Potassium 3.6 3.5 Chloride 105 105 Carbon Dioxide 9 L 13 L BUN 50 H 52 H Creatinine 1.75 H 1.76 H Glucose 1063 H* 984 H* 786 H* Calcium 8.1 L 8.2 L 04/25/25 04/25/25 04/26/25 17:51 21:43 08:52 Sodium 140 144 144 Potassium 2.9 L 2.7 L* 4.9 Chloride 114 H 119 H 122 H Carbon Dioxide 18 L 17 L 14 L BUN 51 H 48 H 46 H Creatinine 1.38 H 1.28 H 1.03 H Glucose 518 H* 152 H 120 H Calcium 8.7 8.8 8.2 L Cardiac Enzymes 04/25/25 Range/Units 11:45 Total Creatine Kinase 386 H (30-135) U/L Liver Function 04/26/25 Range/Units 08:52 Total Bilirubin 0.3 (0.2-1.3) mg/dL AST 85 H (14-36) U/L ALT 35 (6-35) U/L Alkaline Phosphatase 89 (38-126) U/L Albumin 3.2 L (3.5-5.1) g/dL
[2025-04-26] MEDS: SODIUM BICARBONATE TAB 650 MG TABLET PO ×2 (10:53→17:34)
--- NOTE | 2025-04-26 13:36 | PCSTNOTE ---
Please refer to the Bedside Swallow Evaluation in the EMR. Please note, silent aspiration cannot be ruled out at bedside. The above pt. was seen for a BSE due to admission with a dx of CVA. Pt awoke easily and followed directions. She was repositioned upright in the bed for the evaluation; vocal quality was clear; oral mucosa dry; she is edentulous with her dentures at home. Pt stated she could eat solids without her dentures. Pt was tested with ice chips, thin liquid in controlled tsp amounts via a spoon, controlled amounts of pudding via a spoon, and a small piece of cracker. Thin liquids were also tested in uncontrolled amounts via cup sips and via a straw. It was noted that the pt. took consecutive swallows when given the cup and the straw. The oral stage appeared to be intact with no pocketing, residual, or leakage. Mastication was slow but that is felt to be due to being edentulous. Pharyngeal stage: swallow reflex appeared timely and laryngeal elevation adequate. No overt s/s of aspiration occurred. Impressions: functional swallowing Recommendations: level 6 soft & bite size solids due to being edentulous and level 0 regular thin liquids; once pt's dentures are brought in, her diet can be upgraded to regular level 7. No further ST at this time.
--- NOTE | 2025-04-26 14:01 | PM.CNCAR ---
Assessment and Plan Assessment and plan (1) CVA (cerebral vascular accident): Qualifiers: CVA mechanism: unspecified Qualified Code(s): I63.9 - Cerebral infarction, unspecified Code(s): I63.9 - Cerebral infarction, unspecified Status: Acute Assessment and Plan: CT head shows subacute occipital infarct neuro is following remains in NSR on monitor at this time echo suggest possible PFO and will plan for LORI in am check carotid duplex at this time continue aspirin 81 mg daily and atorvastatin (2) DKA (diabetic ketoacidosis): Qualifiers: Diabetes mellitus complication detail: without coma Diabetes mellitus type: type 2 Qualified Code(s): E11.10 - Type 2 diabetes mellitus with ketoacidosis without coma Code(s): E11.10 - Type 2 diabetes mellitus with ketoacidosis without coma Status: Acute Assessment and Plan: present on admission patient is a insulin dependent diabetic management as per [facility] (3) Sepsis: Code(s): A41.9 - Sepsis, unspecified organism Status: Acute Assessment and Plan: with leukocytosis on admission source unclear WBC 28,000 today blood culture pending possible aortic valve vegetation LORI in am antibiotics to continue as per primary team (4) Elevated serum creatinine: Code(s): R79.89 - Other specified abnormal findings of blood chemistry Status: Acute Assessment and Plan: has improved with hydration will monitor (5) Abnormal echocardiogram: Code(s): R93.1 - Abnormal findings on diagnostic imaging of heart and coronary circulation Status: Acute Assessment and Plan: echocardiogram with possible PFO vs pulmonary AVM possible aortic valve vegetation will plan for LORI in am History of Present Illness History of Present Illness Consult date/time: 04/26/25 14:01 Requesting physician: Peewee Mendez MD Consult reason: Other Reason For Visit: dka Narrative: Urvashi Clifford is a 70 y.o. female with a PMH of insulin dependent DM who presented to the ER with reports of AMS. Patient is unclear to what happened on the day of admission. According to chart review patient was found on the floor unresponsive around 0300 am, she was alert, but not following commands and answering questions appropriately. In the ER found to have acute DKA and leukocytosis. Her CT head revealed subacute occipital infarct. She had an echocardiogram that showed possible PFO and aortic valve vegetation. We were consutled for LORI. Patient currently lying in bed and is more alert. Her son is at the bedside. She however, cannot recall any details that brought her into the ER. She denies any chest pain, shortness of breath, dizziness or palpitations at this time. Review of Systems Review of Systems: All systems reviewed & are unremarkable except as noted in HPI and below PMFSH Past Medical History Medical History Tobacco smoker, 1 pack of cigarettes or less per day Diabetes mellitus Social History Social History Social History: Smokes marijuana daily, smokes 1 pack per day daily she has been smoking for long time. Drinks alcohol occasionally. Smoking status: Unknown if ever smoked Alcohol intake: unknown Substance use: unknown Substance use type: unknown Spiritual care concerns: No Meds Home Medications and Allergies Home Medications ?Medication ?Instructions ?Recorded ?Confirmed ?Type insulin aspart U-100 100 unit/mL 10 unit subcut TID 04/25/25 04/25/25 History (3 mL) subcutaneous pen (Novolog FlexPen U-100 Insulin aspart) insulin glargine 100 unit/mL (3 20 unit subcut QPM 04/25/25 04/25/25 History mL) subcutaneous pen (Lantus Solostar U-100 Insulin) Allergies Allergy/AdvReac Type Severity Reaction Status Date / Time No Known Allergies Allergy Verified 04/25/25 13:19 Vital Signs Vital Signs - 24 hr 04/25/25 15:00 04/25/25 16:00 04/25/25 16:00 Temperature 36.7 C 36.9 C Pulse Rate 90 Respiratory Rate 19 Blood Pressure 95/78 L 108/51 L Pulse Oximetry 96 96 Oxygen Delivery Room Air Oxygen Flow Rate Fraction of Inspired Oxygen 04/25/25 16:00 04/25/25 17:00 04/25/25 18:00 Temperature 36.8 C Pulse Rate 87 84 85 Respiratory Rate 19 Blood Pressure 117/52 L Pulse Oximetry 97 Oxygen Delivery Oxygen Flow Rate Fraction of Inspired Oxygen 04/25/25 18:00 04/25/25 19:00 04/25/25 20:00 Temperature 36.8 C 36.8 C 36.5 C Pulse Rate 85 85 86 Respiratory Rate 19 19 19 Blood Pressure 105/45 L 130/52 L 108/49 L Pulse Oximetry 98 97 Oxygen Delivery Oxygen Flow Rate Fraction of Inspired Oxygen 04/25/25 20:00 04/25/25 20:00 04/25/25 20:03 Temperature Pulse Rate 87 89 Respiratory Rate 20 Blood Pressure Pulse Oximetry 98 Oxygen Delivery Room Air Room Air Oxygen Flow Rate Fraction of Inspired Oxygen 21 04/25/25 21:00 04/25/25 22:00 04/25/25 22:00 Temperature 36.3 C L 36.2 C L Pulse Rate 73 84 84 Respiratory Rate 15 19 Blood Pressure 90/40 L 91/56 L Pulse Oximetry 97 97 Oxygen Delivery Oxygen Flow Rate Fraction of Inspired Oxygen 04/25/25 23:00 04/26/25 00:00 04/26/25 00:00 Temperature 36.1 C L 35.3 C L Pulse Rate 81 77 Respiratory Rate 20 20 Blood Pressure 93/58 L 110/58 L Pulse Oximetry 97 94 Oxygen Delivery Room Air Oxygen Flow Rate Fraction of Inspired Oxygen 04/26/25 00:00 04/26/25 00:28 04/26/25 00:43 Temperature 35.1 C L 35.1 C L Pulse Rate 78 Respiratory Rate Blood Pressure Pulse Oximetry Oxygen Delivery Oxygen Flow Rate Fraction of Inspired Oxygen 04/26/25 00:58 04/26/25 01:00 04/26/25 01:13 Temperature 35.3 C L 35.3 C L 35.3 C L Pulse Rate 84 Respiratory Rate 16 Blood Pressure 102/56 L Pulse Oximetry 96 Oxygen Delivery Oxygen Flow Rate Fraction of Inspired Oxygen 04/26/25 01:28 04/26/25 01:58 04/26/25 02:00 Temperature 35.6 C L 36.0 C L Pulse Rate 88 Respiratory Rate Blood Pressure Pulse Oximetry Oxygen Delivery Oxygen Flow Rate Fraction of Inspired Oxygen 04/26/25 02:00 04/26/25 02:19 04/26/25 03:00 Temperature 36.2 C L 36.3 C L 36.6 C Pulse Rate 88 93 Respiratory Rate 24 H 20 Blood Pressure 93/50 L 105/54 L Pulse Oximetry 96 94 Oxygen Delivery Oxygen Flow Rate Fraction of Inspired Oxygen 04/26/25 04:00 04/26/25 04:00 04/26/25 04:00 Temperature 36.5 C Pulse Rate 90 79 Respiratory Rate 20 Blood Pressure 126/62 Pulse Oximetry 93 Oxygen Delivery Room Air Oxygen Flow Rate Fraction of Inspired Oxygen 04/26/25 05:00 04/26/25 05:50 04/26/25 05:54 Temperature 36.8 C Pulse Rate 85 Respiratory Rate 17 Blood Pressure 133/63 Pulse Oximetry 97 85 L 93 Oxygen Delivery Room Air Nasal Cannula Oxygen Flow Rate 2 Fraction of Inspired Oxygen 04/26/25 06:00 04/26/25 06:00 04/26/25 07:00 Temperature 37.0 C 37.3 C Pulse Rate 88 88 90 Respiratory Rate 17 17 Blood Pressure 101/51 L 141/65 H Pulse Oximetry 98 96 Oxygen Delivery Oxygen Flow Rate Fraction of Inspired Oxygen 04/26/25 08:00 04/26/25 08:00 04/26/25 08:00 Temperature 37.4 C Pulse Rate 93 91 Respiratory Rate 19 Blood Pressure 113/61 Pulse Oximetry 99 96 Oxygen Delivery Room Air Oxygen Flow Rate Fraction of Inspired Oxygen 04/26/25 09:00 04/26/25 10:00 04/26/25 10:00 Temperature 37.6 C Pulse Rate 95 105 H 99 Respiratory Rate 22 H 18 Blood Pressure 128/63 142/63 H Pulse Oximetry 96 99 Oxygen Delivery Oxygen Flow Rate Fraction of Inspired Oxygen 04/26/25 12:00 04/26/25 12:00 04/26/25 12:00 Temperature 37.6 C Pulse Rate 85 85 Respiratory Rate 16 Blood Pressure 129/63 Pulse Oximetry 96 100 Oxygen Delivery Room Air Oxygen Flow Rate Fraction of Inspired Oxygen Exam Const: General: No no acute distress Eyes: Sclera: sclerae normal Neck: Neck: supple and No no JVD Carotids: no bruits Resp: Effort & Inspection: normal respiratory effort Auscultation: clear to auscultation bilaterally Cardio: Rate: regular rate Rhythm: regular rhythm Heart sounds: no gallops, no murmurs and no rubs Neuro: Speech: normal speech Extrem: General: no edema Results Labs and Meds 04/26/25 06:24 04/26/25 08:52 Lab results: Cardiac Enzymes 04/26/25 Range/Units 08:52 AST 85 H (14-36) U/L Lipids 04/26/25 Range/Units 06:27 Triglycerides 80 (<150) mg/dL Cholesterol 124 (0-200) mg/dL CBC 04/26/25 Range/Units 06:24 WBC 28.1 H (4.5-10.0) K/mm3 RBC 4.38 (4.2-5.4) M/mm3 Hgb 13.0 (12.0-15.0) g/dL Hct 41.1 (37.0-47.0) % Plt Count 245 (150-375) k/mm3 Lymph # (Auto) 1.43 (0.9-3.2) K/mm3 Hinds # (Auto) 1.9 H (0.1-0.6) K/mm3 Eos # (Auto) 0.0 (0-0.3) K/mm3 Baso # (Auto) 0.1 (0.0-0.1) K/mm3 Comprehensive Metabolic Panel 04/25/25 04/25/25 04/25/25 Range/Units 15:11 17:51 21:43 Sodium 140 144 (137-145) mmol/L Potassium 2.9 L 2.7 L* (3.4-5.0) mmol/L Chloride 114 H 119 H (98-107) mmol/L Carbon Dioxide 18 L 17 L (22-30) mmol/L BUN 51 H 48 H (7-17) mg/dL Creatinine 1.38 H 1.28 H (0.7-1.0) mg/dL Glucose 786 H* 518 H* 152 H (65-110) mg/dL Calcium 8.7 8.8 (8.4-10.2) mg/dL AST (14-36) U/L ALT (6-35) U/L Alkaline Phosphatase (38-126) U/L Total Protein (6.3-8.2) g/dL Albumin (3.5-5.1) g/dL 04/26/25 Range/Units 08:52 Sodium 144 (137-145) mmol/L Potassium 4.9 (3.4-5.0) mmol/L Chloride 122 H (98-107) mmol/L Carbon Dioxide 14 L (22-30) mmol/L BUN 46 H (7-17) mg/dL Creatinine 1.03 H (0.7-1.0) mg/dL Glucose 120 H (65-110) mg/dL Calcium 8.2 L (8.4-10.2) mg/dL AST 85 H (14-36) U/L ALT 35 (6-35) U/L Alkaline Phosphatase 89 (38-126) U/L Total Protein 6.1 L (6.3-8.2) g/dL Albumin 3.2 L (3.5-5.1) g/dL Intake and Output 04/25/25 04/26/25 04/26/25 23:59 07:59 15:59 Intake Total 2129.5 520 1680.0 Output Total 450 200 Balance 1679.5 320 1680.0 Intake: IV 2129.5 520 1680.0 Insulin Human Regular (*Bkc) 210.2 100 units In Sodium Chloride 0. 9% IV 99 ml @ 1 UNITS/HR 1 mls/ hr IV CONT .Q24H [facility] Rx#: [id number] KCl 20 Meq/0.45% Ns 1,000 ml @ 1130.0 100 mls/hr IV CONT .Q10H [facility] Rx #:[id number] Sodium Chloride 0.9% IV 1,000 1782.5 ml @ 150 mls/hr IV CONT .Q6H40M [facility] Rx#:[id number] Cefepime 1 gm In Sodium 50 50 Chloride 0.9% IV 50 ml @ 100 mls/hr IVPB Q12H [facility] Rx#: [id number] Potassium Chloride Inj 40 meq 86.8 520 In Sodium Chloride 0.9% IV 500 ml @ 130 mls/hr IVPB ONCE ONE Rx#:[id number] Potassium Phos,S-Ijyio-M-Basic 250 20 mmol In Sodium Chloride 0.9% IV 250 ml @ 64.167 mls/hr IVPB ONCE ONE Rx#:[id number] Vancomycin HCl 1,000 mg In 250 Sodium Chloride 0.9% IV 250 ml @ 250 mls/hr IVPB ONCE ONE Rx#: [id number] Output: Catheter Urine 450 200 Urethral Catheter 450 200 Patient Weight 04/26/25 23:59 Weight 57.1 kg Imaging and Cardiology Echo: report reviewed (04/25/25- EF of >70% with grade II diastolic dysfunction, possible PFO vs pulmonary AVM, possible aortic valve vegetation ) EKG results: image reviewed EKG Interpretation EKG: sinus rhythm EKG shows: sinus rhythm (no acute ST/T wave changes )
[2025-04-26] MEDS: INSULIN ASPART (*BKC) 100 UNITS/ML SUB-Q ×2 (17:35→21:28)
[2025-04-26] MEDS: INSULIN GLARGINE (*BKC) 100 UNITS/ML 10 UNITS SUB-Q (21:27)
[2025-04-27] VITALS (11 sets, daily range): BP systolic 109–174; BP diastolic 62–109; PULSE 62–79; RESP 12–18; TEMP 36.5–37.5; O2SAT 90–99
--- NOTE | 2025-04-27 | ECHO_ITS ---
Patient Info Name: Urvashi Clifford Age: 70 years : 1955 Gender: Female Ht: 62 in Wt: 125 lbs BSA: 1.58 m2 Exam Date: 04/27/2025 2:00 PM Patient Status: I Admit Date: 04/25/2025 Exam Type: CA echo transesophageal Staff Referring Physician: Peewee Mendez MD Attending Provider: Martín Guevara MD Summary 1. There is normal biventricular size and systolic function. 2. There is no left atrial appendage thrombus. 3. There are no significant valvular abnormalities. Complications There were no complication prior to, during or in recovery from the transesophageal echocardiogram. Medications The posterior pharynx was sprayed with Cetacaine spray. Sedation provided by Anesthesiology. Procedure Details The patient arrived in a fasting state after obtaining informed consent. The transesophageal probe was passed into the posterior pharynx, mid-esophagus, and distal esophagus. Imaging was performed at multiple levels. The patient tolerated the procedure well and there were no complications. The patient was transferred out of the examination area in satisfactory condition. Left Ventricle The left ventricle is normal in size and systolic function. Right Ventricle The right ventricle is normal in size and systolic function. Left Atria The left atrium is normal size. Right Atria The right atrium is normal size. Atrial Septum The atrial septum is normal. Agitated saline and color Doppler study did not reveal any interatrial shunt. Atrial Appendage The left atrial appendage is free of thrombus. Aortic Valve The aortic valve is trileaflet and opens well. There is no vegetation or valvular mass. Pulmonic Valve The pulmonic valve is normal. Mitral Valve The mitral valve is normal. There is mild mitral regurgitation. Tricuspid Valve The tricuspid valve is normal. There is mild tricuspid regurgitation. Pericardium/Pleural Pericardium is normal in appearance with no evidence for significant pericardial effusion. Aorta There is minimal calcification of the visualized portions of aorta. Report Signatures
[2025-04-27 05:35] LABS: Hematocrit 38.0 % (37.0-47.0); Hemoglobin 12.7 g/dL (12.0-15.0); Immature Granulocyte Percent A 0.7 % (0-0.5); Lymphocytes Absolute Auto 2.24 K/mm3 (0.9-3.2); Mean Corpuscular HGB Conc 33.4 g/dl (32-36); Mean Corpuscular Hemoglobin 30.1 pg (26-34); Mean Corpuscular Volume 90.0 fl (80-100); Nucleated Red Blood Cells Absolute Auto 0.000 K/mm3 (0.0-0.012); Nucleated Red Blood Cells Perc 0.0 % (0.0-0.2); Platelet Count Result 212 k/mm3 (150-375); Red Blood Count 4.22 M/mm3 (4.2-5.4); White Blood Count 16.5 K/mm3 (4.5-10.0)
[2025-04-27 06:10] LABS: Alanine Aminotransferase 39 U/L (6-35); Albumin Level 3.0 g/dL (3.5-5.1); Alkaline Phosphatase 87 U/L (38-126); Anion Gap -1 mmol/L (4-12); Aspartate Amino Transferase 69 U/L (14-36); Bilirubin,Total 0.5 mg/dL (0.2-1.3); Blood Urea Nitrogen 27 mg/dL (7-17); Calcium 8.3 mg/dL (8.4-10.2); Carbon Dioxide 23 mmol/L (22-30); Chloride 114 mmol/L (98-107); Estimated CRCL calculation 55 ml/min; Estimated Glomerular Filt Rate > 60; Glucose 84 mg/dL (65-110); Magnesium 2.1 mg/dL (1.6-2.3); Potassium 4.1 mmol/L (3.4-5.0); Sodium 136 mmol/L (137-145); Total Protein 5.8 g/dL (6.3-8.2)
[2025-04-27] MEDS: VANCOMYCIN 750 MG/NS 250 ML 750 MG/250 ML BAG 250 MG IVPB ×2 (06:54→18:24)
[2025-04-27] MEDS: ENOXAPARIN 40 MG/0.4 ML SYRINGE SUB-Q (08:59)
[2025-04-27] MEDS: CEFEPIME 1 GM in SODIUM CHLORIDE 0.9% IV 50 ML 100 ML IVPB ×2 (08:59→20:46)
[2025-04-27] MEDS: PANTOPRAZOLE SODIUM IV 40 MG VIAL IV PUSH (08:59)
[2025-04-27] MEDS: SODIUM BICARBONATE TAB 650 MG TABLET PO ×2 (08:59→16:53)
[2025-04-27] MEDS: ASPIRIN 325 MG ENTERIC TABLET PO (08:59)
[2025-04-27] MEDS: ATORVASTATIN 40 MG TABLET 80 MG PO (08:59)
--- NOTE | 2025-04-27 09:31 | P.PNIM_ITS ---
Assessment and Plan Assessment and Plan (1) DKA (diabetic ketoacidosis): Qualifiers: Diabetes mellitus complication detail: without coma Diabetes mellitus type: type 2 Qualified Code(s): E11.10 - Type 2 diabetes mellitus with ketoacidosis without coma Code(s): E11.10 - Type 2 diabetes mellitus with ketoacidosis without coma Status: Acute Assessment and Plan: On presentation her Lab work was consistent with DKA. Patient also appears dehydration hypovolemia Pt was given IVF bolus and will be started on infusion Insulin infusion started and Q1H glucose monitoring is being done Serial labs were done Her anion gap was closed and she has been transition to subcutaneous insulin. Consult dietitian and tobacco prevention health educator She is on diabetic diet (2) Encephalopathy: Code(s): G93.40 - Encephalopathy, unspecified Status: Acute Assessment and Plan: Encephalopathy likely secondary to DKA and CVA. Symptoms have improved and she is now AO x3 Ammonia and TSH normal Head CT shows possible left occipital subacute infarct MRI as below (3) Sepsis: Code(s): A41.9 - Sepsis, unspecified organism Status: Acute Assessment and Plan: Patient meets criteria with sepsis although there is no focal source of infection at this time UA and chest x-ray negative Patient given empiric vancomycin and cefepime in the ER which will be continued Blood cultures drawn Her procalcitonin level was elevated He echo suggest aortic root vegetation. Ej scheduled for today (4) CVA (cerebral vascular accident): Qualifiers: CVA mechanism: unspecified Qualified Code(s): I63.9 - Cerebral infarction, unspecified Code(s): I63.9 - Cerebral infarction, unspecified Status: Acute Assessment and Plan: Head CT shows left occipital infarct probably subacute. MRI confirmed IMPRESSION: 1. Restricted diffusion suggestive of acute infarct in the occipital lobes, predominantly on the left side and smaller area on the right side. 2. No intracranial bleed. No space-occupying lesions. No abnormal enhancement. Carotid Doppler IMPRESSION: 1. Antegrade flow in both vertebral arteries.. 2. Calcific atherosclerotic plaque of proximal internal carotid arteries on both sides with an estimated narrowing of less than 50% in diameter on each side based on NASCET criteria. No evidence of hemodynamically significant obstruction is noted.. She passed her swallow eval PT OT consult Aspirin statin Neurology consult EJ pending (5) Elevated serum creatinine: Code(s): R79.89 - Other specified abnormal findings of blood chemistry Status: Acute Assessment and Plan: Presented with elevated serum creatinine 1.9. Likely secondary to DKA and dehydration Creatinine improved with IV fluids and now normalized Monitor urine output electrolytes and creatinine Negative renal ultrasound (6) Electrolyte abnormality: Code(s): E87.8 - Other disorders of electrolyte and fluid balance, not elsewhere classified Status: Acute Assessment and Plan: Labs improved after placement Plan DVT prophylaxis -Lovenox Nutrition -diabetic diet Code Status - Full Code Spoke to and updated patient Transfer transferred to [facility] today Subjective Date/time seen: 04/27/25 Patient states he feels good and denies any new complaints. She had stable vital signs overall. She passed her swallow study. She is tolerating p.o. diet. NPO this morning for procedure. She had her MRI. Review of system is positive for cough. Patient denies fever, chest pain, shortness of breath, nausea vomiting, abdominal pain,, diarrhea, headache or constipation. All other systems were reviewed and were negative. Review of Systems Review of Systems: All systems reviewed & are unremarkable except as noted in HPI and below (HPI) Exam Narrative: General: Awake alert Lungs/Chest: Trachea central Clear BS B/L, No crackles or wheezing. Cardiac: RRR. Normal S1 S2. No murmurs Circulation: Pedal pulses are intact and symmetrical. Abdomen: Normal bowel sounds.. Soft. NT. ND. Extremities: No clubbing, cyanosis or edema. Warm : Sanchez in place Neurologic: Awake alert this morning AO x3, moves all 4 extremities, follows commands all 4 extremities. No FND heparin Skin: No Rash HEENT: Oral mucosa is dry Objective Data Vital Signs Vital Signs: Vital Signs - 24 hr 04/26/25 10:00 04/26/25 10:00 04/26/25 12:00 Temperature Pulse Rate 105 H 99 Respiratory Rate 18 Blood Pressure 142/63 H Pulse Oximetry 99 96 Oxygen Delivery Room Air 04/26/25 12:00 04/26/25 12:00 04/26/25 14:00 Temperature 37.6 C Pulse Rate 85 85 78 Respiratory Rate 16 Blood Pressure 129/63 Pulse Oximetry 100 Oxygen Delivery 04/26/25 15:41 04/26/25 16:00 04/26/25 16:00 Temperature 37.3 C Pulse Rate 85 Respiratory Rate 18 Blood Pressure 146/83 H Pulse Oximetry 98 96 Oxygen Delivery Room Air Room Air 04/26/25 16:00 04/26/25 20:00 04/26/25 20:00 Temperature 36.7 C Pulse Rate 76 69 69 Respiratory Rate 19 Blood Pressure 128/69 Pulse Oximetry 97 Oxygen Delivery 04/26/25 20:00 04/26/25 22:00 04/27/25 00:00 Temperature Pulse Rate 69 67 68 Respiratory Rate 19 Blood Pressure Pulse Oximetry 97 Oxygen Delivery Room Air 04/27/25 00:00 04/27/25 00:00 04/27/25 01:59 Temperature 37.2 C Pulse Rate 68 68 71 Respiratory Rate 16 16 Blood Pressure 142/75 H Pulse Oximetry 98 98 Oxygen Delivery Room Air 04/27/25 04:00 04/27/25 04:00 04/27/25 04:00 Temperature 37.3 C Pulse Rate 70 70 70 Respiratory Rate 18 18 Blood Pressure 174/76 H Pulse Oximetry 97 97 Oxygen Delivery Room Air 04/27/25 06:00 04/27/25 08:24 Temperature Pulse Rate 77 Respiratory Rate Blood Pressure Pulse Oximetry Oxygen Delivery Room Air Intake/Output Intake/Output: Intake & Output 04/24/25 04/25/25 04/26/25 04/27/25 23:59 23:59 23:59 23:59 Intake Total 4576.7 2600.0 520 Output Total 1550 600 375 Balance 3026.7 2000.0 145 Meds/Results Medications: Active Medications Generic Name Dose Route Start Last Admin Trade Name Freq PRN Reason Stop Dose Admin Aspirin 325 mg 04/26/25 09:00 04/27/25 08:59 Aspirin 325 Mg Enteric Tablet PO 325 mg QAM [place] Administration Atorvastatin Calcium 80 mg 04/26/25 09:00 04/27/25 08:59 Atorvastatin 40 Mg Tablet PO 80 mg DAILY [place] Administration Dextrose 12.5 gm 04/25/25 09:42 04/26/25 00:10 Dextrose 50% 25 Gm/50 Ml Syringe IV PUSH 12.5 gm PRN PRN Administration Hypoglycemia Protocol Enoxaparin Sodium 40 mg 04/26/25 09:00 04/27/25 08:59 Enoxaparin 40 Mg/0.4 Ml Syringe SUB-Q 40 mg DAILY [place] Administration Glucagon 1 mg 04/25/25 09:42 Glucagon For Inj 1 Mg Vial IM PRN PRN Hypoglycemia Protocol Glucose 15 gm 04/25/25 09:42 Glucose Oral Gel 15 Gm Of Glucse In 37.5 Gm Tube PO PRN PRN Hypoglycemia Protocol Dextrose 1,000 mls @ 100 mls/hr 04/25/25 09:42 Dextrose 5% 1,000 Ml IVPB PRN PRN Hypoglycemia Protocol Cefepime HCl 1 gm/ Sodium 50 mls @ 100 mls/hr 04/25/25 21:00 04/27/25 08:59 Chloride IVPB 100 mls/hr Q12H [place] Administration Vancomycin HCl 750 mg in 250 mls @ 250 mls/hr 04/27/25 06:00 04/27/25 06:54 Vancomycin 750 Mg/Ns 250 Ml IVPB 250 mls/hr Q12H [place] Administration Insulin Aspart 3 - 6 units 04/27/25 12:00 Insulin Aspart (*Bkc) 100 Units/Ml SUB-Q TIDWM [place] Protocol Insulin Glargine 10 units 04/26/25 21:00 04/26/25 21:27 Insulin Glargine (*Bkc) 100 Units/Ml SUB-Q 10 units HS [place] Administration Pantoprazole Sodium 40 mg 04/26/25 09:00 04/27/25 08:59 Pantoprazole Sodium Iv 40 Mg Vial IV PUSH 40 mg QAM [place] Administration Perflutren Lipid Microsphere 0 ml 04/25/25 13:41 Perflutren Lipid Microspheres 1.5 Ml Vial Diluted To 10 Ml Total Volume IV PUSH 04/28/25 13:41 ONCE PRN adequate visualization Protocol Sodium Bicarbonate 650 mg 04/27/25 09:00 04/27/25 08:59 Sodium Bicarbonate Tab 650 Mg Tablet PO 04/27/25 17:01 650 mg BID [place] Administration Radiology Results: ITS Impressions Cervical Spine CT 04/25/25 09:27 IMPRESSION: HEAD: 1. 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 Consider MRI, if able. 2. No intracerebral hemorrhage. C-SPINE: 1. No acute fracture. Head CT 04/25/25 09:27 IMPRESSION: HEAD: 1. 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 Consider MRI, if able. 2. No intracerebral hemorrhage. C-SPINE: 1. No acute fracture. Chest X-Ray 04/25/25 09:36 IMPRESSION: 1. No acute cardiopulmonary disease. Pelvis X-Ray 04/25/25 09:36 Impression: No acute fracture or malalignment. Renal Ultrasound 04/25/25 12:55 IMPRESSION: 1. Normal kidneys without hydronephrosis. Carotid Doppler Study 04/26/25 17:50 IMPRESSION: 1. Antegrade flow in both vertebral arteries.. 2. Calcific atherosclerotic plaque of proximal internal carotid arteries on both sides with an estimated narrowing of less than 50% in diameter on each side based on NASCET criteria. No evidence of hemodynamically significant obstruction is noted.. Brain MRI 04/26/25 18:42 IMPRESSION: 1. Restricted diffusion suggestive of acute infarct in the occipital lobes, predominantly on the left side and smaller area on the right side. 2. No intracranial bleed. No space-occupying lesions. No abnormal enhancement. Labs Labs: Laboratory Results - last 24 hr 04/26/25 04/26/25 04/26/25 12:12 16:36 21:14 WBC RBC Hgb Hct MCV MCH MCHC RDW Plt Count MPV Immature Gran % (Auto) Neut % (Auto) Lymph % (Auto) [place] % (Auto) Eos % (Auto) Baso % (Auto) Lymph # (Auto) [place] # (Auto) Eos # (Auto) Baso # (Auto) Abs Immat Gran (auto) Absolute Neuts (auto) Absolute Nucleated RBC Nucleated RBC % Sodium Potassium Chloride Carbon Dioxide Anion Gap BUN Creatinine Estim Creat Clear Calc Estimated GFR Glucose POC Capillary Glucose 126 H 221 H 206 H Calcium Magnesium Total Bilirubin AST ALT Alkaline Phosphatase Total Protein Albumin Random Vancomycin 04/27/25 04/27/25 04/27/25 00:17 04:13 05:20 WBC 16.5 H RBC 4.22 Hgb 12.7 Hct 38.0 MCV 90.0 MCH 30.1 MCHC 33.4 RDW 13.1 Plt Count 212 MPV 10.8 H Immature Gran % (Auto) 0.7 H Neut % (Auto) 80.6 H Lymph % (Auto) 13.6 L [place] % (Auto) 4.2 Eos % (Auto) 0.5 Baso % (Auto) 0.4 Lymph # (Auto) 2.24 [place] # (Auto) 0.7 H Eos # (Auto) 0.1 Baso # (Auto) 0.1 Abs Immat Gran (auto) 0.12 H Absolute Neuts (auto) 13.3 H Absolute Nucleated RBC 0.000 Nucleated RBC % 0.0 Sodium 136 L Potassium 4.1 Chloride 114 H Carbon Dioxide 23 Anion Gap -1 L BUN 27 H D Creatinine 0.66 L Estim Creat Clear Calc 55 Estimated GFR > 60 Glucose 84 POC Capillary Glucose 139 H 85 Calcium 8.3 L Magnesium 2.1 Total Bilirubin 0.5 AST 69 H ALT 39 H Alkaline Phosphatase 87 Total Protein 5.8 L Albumin 3.0 L Random Vancomycin 7.1 L Quality VTE Prophylaxis VTE prophylaxis: pharmacologic ordered
--- NOTE | 2025-04-27 11:02 | PCFNICU ---
ICU Rounding Note: Pt current nutrition is NPO Last recorded weight is 57.1 kg, up from 55.4 kg on admit. Bowel Motility: No BM reported. Labs Reviewed: Cr 0.66, Alb 3.0, PO4 4.6, Na 136 Meds Noted: NovoLog, Lantus Skin: WNL Additional Notes: Patient NPO for LORI today. Patient had MBS 12/-passed. Plans to advance patient as tolerated to [facility] diet with Glucerna shakes BID for additional 240 kcal and 10 gm protein. Following daily in ICU rounds.
--- NOTE | 2025-04-27 13:08 | WPDHPUPDATE1 ---
History and Physical Update Update Date/Time: 04/27/25 13:08 History and Physical has been reviewed, including an updated exam of the patient. There are NO changes in the patient's condition. Risks, benefits, and alternatives have been discussed and questions answered. Patient agrees to proceed with procedure.
--- NOTE | 2025-04-27 13:52 | P.PNAN_ITS ---
Anes - Initial Pre Proc Eval Procedure: Operation Date: 04/27/25 14:00 Proposed Procedures p Trans Esophageal Echo - Kehinde Abdullahi MD Date/Time: 04/27/25 13:52 Surgeon: Martín Guevara MD Pre Op Diagnosis: dka Patient Data Age: 70 Gender: F Height: 1.57 m Weight: 56.4 kg Last Vital Signs Temp 99.5 F 04/27/25 08:00 Pulse 67 04/27/25 12:00 Resp 16 04/27/25 12:00 BP 168/81 H 04/27/25 12:00 Pulse Ox 99 04/27/25 12:00 O2 Del Method Room Air 04/27/25 08:24 O2 Flow Rate 2 04/26/25 05:54 FiO2 21 04/25/25 20:03 Allergies Allergy/AdvReac Type Severity Reaction Status Date / Time No Known Allergies Allergy Verified 04/25/25 13:19 Home Medications ?Medication ?Instructions ?Recorded ?Confirmed ?Type insulin aspart U-100 100 unit/mL 10 unit subcut TID 04/25/25 History (3 mL) subcutaneous pen (Novolog FlexPen U-100 Insulin aspart) insulin glargine 100 unit/mL (3 20 unit subcut QPM 02/0904/25/25 History mL) subcutaneous pen (Lantus Solostar U-100 Insulin) Laboratory Tests 04/26/25 04/26/25 04/27/25 16:36 21:14 00:17 WBC RBC Hgb Hct MCV MCH MCHC RDW Plt Count MPV Immature Gran % (Auto) Neut % (Auto) Lymph % (Auto) [place] % (Auto) Eos % (Auto) Baso % (Auto) Lymph # (Auto) [place] # (Auto) Eos # (Auto) Baso # (Auto) Abs Immat Gran (auto) Absolute Neuts (auto) Absolute Nucleated RBC Nucleated RBC % Sodium Potassium Chloride Carbon Dioxide Anion Gap BUN Creatinine Estim Creat Clear Calc Estimated GFR Glucose POC Capillary Glucose 221 H mg/dl 206 H mg/dl 139 H mg/dl (65-105) (65-105) (65-105) Calcium Magnesium Total Bilirubin AST ALT Alkaline Phosphatase Total Protein Albumin Random Vancomycin 04/27/25 04/27/25 04/27/25 04:13 05:20 08:58 WBC 16.5 H K/mm3 (4.5-10.0) RBC 4.22 M/mm3 (4.2-5.4) Hgb 12.7 g/dL (12.0-15.0) Hct 38.0 % (37.0-47.0) MCV 90.0 fl (80-100) MCH 30.1 pg (26-34) MCHC 33.4 g/dl (32-36) RDW 13.1 % (11.5-14.5) Plt Count 212 k/mm3 (150-375) MPV 10.8 H fl (7.4-10.4) Immature Gran % (Auto) 0.7 H % (0-0.5) Neut % (Auto) 80.6 H % (45.5-73.1) Lymph % (Auto) 13.6 L % (18.3-44.2) [place] % (Auto) 4.2 % (2.6-8.5) Eos % (Auto) 0.5 % (0-4.4) Baso % (Auto) 0.4 % (0.2-1.2) Lymph # (Auto) 2.24 K/mm3 (0.9-3.2) [place] # (Auto) 0.7 H K/mm3 (0.1-0.6) Eos # (Auto) 0.1 K/mm3 (0-0.3) Baso # (Auto) 0.1 K/mm3 (0.0-0.1) Abs Immat Gran (auto) 0.12 H K/mm3 (0.00-0.031) Absolute Neuts (auto) 13.3 H K/mm3 (1.3-6.7) Absolute Nucleated RBC 0.000 K/mm3 (0.0-0.012) Nucleated RBC % 0.0 % (0.0-0.2) Sodium 136 L mmol/L (137-145) Potassium 4.1 mmol/L (3.4-5.0) Chloride 114 H mmol/L (98-107) Carbon Dioxide 23 mmol/L (22-30) Anion Gap -1 L mmol/L (4-12) BUN 27 H D mg/dL (7-17) Creatinine 0.66 L mg/dL (0.7-1.0) Estim Creat Clear Calc 55 ml/min Estimated GFR > 60 (59 - ) Glucose 84 mg/dL (65-110) POC Capillary Glucose 85 mg/dl 92 mg/dl (65-105) (65-105) Calcium 8.3 L mg/dL (8.4-10.2) Magnesium 2.1 mg/dL (1.6-2.3) Total Bilirubin 0.5 mg/dL (0.2-1.3) AST 69 H U/L (14-36) ALT 39 H U/L (6-35) Alkaline Phosphatase 87 U/L (38-126) Total Protein 5.8 L g/dL (6.3-8.2) Albumin 3.0 L g/dL (3.5-5.1) Random Vancomycin 7.1 L ug/mL (10-20) 04/27/25 11:23 WBC RBC Hgb Hct MCV MCH MCHC RDW Plt Count MPV Immature Gran % (Auto) Neut % (Auto) Lymph % (Auto) [place] % (Auto) Eos % (Auto) Baso % (Auto) Lymph # (Auto) [place] # (Auto) Eos # (Auto) Baso # (Auto) Abs Immat Gran (auto) Absolute Neuts (auto) Absolute Nucleated RBC Nucleated RBC % Sodium Potassium Chloride Carbon Dioxide Anion Gap BUN Creatinine Estim Creat Clear Calc Estimated GFR Glucose POC Capillary Glucose 94 mg/dl (65-105) Calcium Magnesium Total Bilirubin AST ALT Alkaline Phosphatase Total Protein Albumin Random Vancomycin Patient hx anesthesia problems: none Family hx anesthesia problems: none Results Review: All pre-operative results and documents have been reviewed as part of the pre- operative evaluation. [facility] Past Medical History Medical History Tobacco smoker, 1 pack of cigarettes or less per day Diabetes mellitus Social History Social History Social History: Smokes marijuana daily, smokes 1 pack per day daily she has been smoking for long time. Drinks alcohol occasionally. Smoking status: Unknown if ever smoked Alcohol intake: unknown Substance use: unknown Substance use type: unknown Spiritual care concerns: No Anes - Eval Final PreProcedure Day of Procedure 04/27/25 13:52 Patient weight: normal Heart: regular rate and rhythm Lungs: clear to auscultation Airway: Mallampati scale class II Neurological: alert and oriented Last oral intake: >/= 8 hours ASA classification: IV Emergent: no Anesthetic plan: proceed Anesthesia type and monitoring: general GIVS and standard monitoring Results Review: All pre-operative results and documents have been reviewed as part of the pre- operative evaluation. Informed Consent: The patient's anesthetic plan and its attendant risks and benefits were discussed with the patient/family/POA. Questions were solicited and answers provided to the satisfaction of the patient/family/POA.
[2025-04-27] MEDS: INSULIN GLARGINE (*BKC) 100 UNITS/ML 10 UNITS SUB-Q (20:47)
[2025-04-28] VITALS (7 sets, daily range): BP systolic 107–166; BP diastolic 73–82; PULSE 70–110; RESP 15–18; TEMP 36.4–36.9; O2SAT 96–97; BMI 22.2
[2025-04-28] MEDS: BENZOCAINE/MENTHOL (*BKC) 18 EA LOZENGE 1 LOZENGE PO ×2 (00:38→09:02)
--- NOTE | 2025-04-28 00:42 | PC.NURSE ---
Patient complaining of sore throat due to LORI. Dr. De La Rosa notified new orders received.
[2025-04-28 05:32] LABS: Hematocrit 38.8 % (37.0-47.0); Hemoglobin 12.9 g/dL (12.0-15.0); Immature Granulocyte Percent A 0.4 % (0-0.5); Lymphocytes Absolute Auto 1.84 K/mm3 (0.9-3.2); Mean Corpuscular HGB Conc 33.2 g/dl (32-36); Mean Corpuscular Hemoglobin 29.8 pg (26-34); Mean Corpuscular Volume 89.6 fl (80-100); Nucleated Red Blood Cells Absolute Auto 0.000 K/mm3 (0.0-0.012); Nucleated Red Blood Cells Perc 0.0 % (0.0-0.2); Platelet Count Result 152 k/mm3 (150-375); Red Blood Count 4.33 M/mm3 (4.2-5.4); White Blood Count 8.4 K/mm3 (4.5-10.0)
[2025-04-28 06:23] LABS: Alanine Aminotransferase 49 U/L (6-35); Albumin Level 3.2 g/dL (3.5-5.1); Alkaline Phosphatase 94 U/L (38-126); Anion Gap -3 mmol/L (4-12); Aspartate Amino Transferase 68 U/L (14-36); Bilirubin,Total 0.8 mg/dL (0.2-1.3); Blood Urea Nitrogen 11 mg/dL (7-17); Calcium 8.4 mg/dL (8.4-10.2); Carbon Dioxide 29 mmol/L (22-30); Chloride 106 mmol/L (98-107); Estimated CRCL calculation 66 ml/min; Estimated Glomerular Filt Rate > 60; Glucose 158 mg/dL (65-110); Magnesium 2.1 mg/dL (1.6-2.3); Potassium 4.2 mmol/L (3.4-5.0); Sodium 132 mmol/L (137-145); Total Protein 6.0 g/dL (6.3-8.2)
[2025-04-28] MEDS: VANCOMYCIN 1,250 MG/NS 250 ML 1,250 MG/250 ML BAG 166.67 MG IVPB (06:51)
[2025-04-28] MEDS: ATORVASTATIN 40 MG TABLET 80 MG PO (09:00)
[2025-04-28] MEDS: ENOXAPARIN 40 MG/0.4 ML SYRINGE SUB-Q (09:00)
[2025-04-28] MEDS: CEFEPIME 2 GM in SODIUM CHLORIDE 0.9% IV 50 ML 100 ML IVPB ×2 (09:00→20:24)
[2025-04-28] MEDS: PANTOPRAZOLE SODIUM IV 40 MG VIAL IV PUSH (09:00)
[2025-04-28] MEDS: ASPIRIN 325 MG ENTERIC TABLET PO (09:00)
--- NOTE | 2025-04-28 09:01 | PM.IMPN2 ---
Assessment and Plan Assessment and Plan (1) DKA (diabetic ketoacidosis): Qualifiers: Diabetes mellitus complication detail: without coma Diabetes mellitus type: type 2 Qualified Code(s): E11.10 - Type 2 diabetes mellitus with ketoacidosis without coma Code(s): E11.10 - Type 2 diabetes mellitus with ketoacidosis without coma Status: Acute Assessment and Plan: On presentation her Lab work was consistent with DKA. Patient also appears dehydration hypovolemia Pt was given IVF bolus and will be started on infusion Insulin infusion started and Q1H glucose monitoring is being done Serial labs were done Her anion gap was closed and she has been transition to subcutaneous insulin. Consulted dietitian and clinical staff educator She is on diabetic diet (2) Encephalopathy: Code(s): G93.40 - Encephalopathy, unspecified Status: Acute Assessment and Plan: Encephalopathy likely secondary to DKA and CVA. Symptoms have improved and she is now AO x3 Ammonia and TSH normal Head CT shows possible left occipital subacute infarct MRI as below (3) Sepsis: Code(s): A41.9 - Sepsis, unspecified organism Status: Acute Assessment and Plan: Patient meets criteria with sepsis although there is no focal source of infection at this time UA and chest x-ray were negative Patient given empiric vancomycin and cefepime in the ER which were continued Blood cultures were drawn and negative till now Her procalcitonin level was elevated He echo suggest aortic root vegetation. LORI was negative Discontinue vancomycin (4) CVA (cerebral vascular accident): Qualifiers: CVA mechanism: unspecified Qualified Code(s): I63.9 - Cerebral infarction, unspecified Code(s): I63.9 - Cerebral infarction, unspecified Status: Acute Assessment and Plan: Head CT shows left occipital infarct probably subacute. MRI confirmed IMPRESSION: 1. Restricted diffusion suggestive of acute infarct in the occipital lobes, predominantly on the left side and smaller area on the right side. 2. No intracranial bleed. No space-occupying lesions. No abnormal enhancement. Carotid Doppler IMPRESSION: 1. Antegrade flow in both vertebral arteries.. 2. Calcific atherosclerotic plaque of proximal internal carotid arteries on both sides with an estimated narrowing of less than 50% in diameter on each side based on NASCET criteria. No evidence of hemodynamically significant obstruction is noted.. She passed her swallow eval PT OT consult Aspirin statin, blood pressure control with lisinopril Neurology consult LORI was negative for PFO (5) Elevated serum creatinine: Code(s): R79.89 - Other specified abnormal findings of blood chemistry Status: Acute Assessment and Plan: Presented with elevated serum creatinine 1.9. Likely secondary to DKA and dehydration Creatinine improved with IV fluids and now normalized Monitor urine output electrolytes and creatinine Negative renal ultrasound (6) Electrolyte abnormality: Code(s): E87.8 - Other disorders of electrolyte and fluid balance, not elsewhere classified Status: Acute Assessment and Plan: Labs improved after placement (7) Hypertension: Code(s): I10 - Essential (primary) hypertension Status: Acute Assessment and Plan: Increase lisinopril dose Plan DVT prophylaxis -Lovenox Nutrition -diabetic diet Code Status - Full Code Spoke to and updated patient Will discuss with PT OT regarding discharge planning Subjective Date/time seen: 04/28/25 Patient feels better overall and denies any new complaints. She states she is working with physical therapy and is needing walker right now. She ate her dinner. She had a LORI yesterday. She is afebrile. Blood pressure still elevated. All other systems were reviewed and were negative. Review of Systems Review of Systems: All systems reviewed & are unremarkable except as noted in HPI and below (HPI) Exam Narrative: General: Awake alert Lungs/Chest: Trachea central Clear BS B/L, No crackles or wheezing. Cardiac: RRR. Normal S1 S2. No murmurs Circulation: Pedal pulses are intact and symmetrical. Abdomen: Normal bowel sounds.. Soft. NT. ND. Extremities: No clubbing, cyanosis or edema. Warm : Sanchez in place Neurologic: Awake alert this morning AO x3, moves all 4 extremities, follows commands all 4 extremities. No FND heparin Skin: No Rash Objective Data Vital Signs Vital Signs: Vital Signs - 24 hr 04/27/25 12:00 04/27/25 12:00 04/27/25 14:43 Temperature Pulse Rate 78 67 68 Respiratory Rate 16 15 Blood Pressure 168/81 H 113/65 Pulse Oximetry 99 95 Oxygen Delivery Nasal Cannula Oxygen Flow Rate 2 04/27/25 14:58 04/27/25 15:13 04/27/25 16:00 Temperature 37.2 C Pulse Rate 67 66 79 Respiratory Rate 12 15 14 Blood Pressure 115/62 109/62 150/79 H Pulse Oximetry 90 92 99 Oxygen Delivery Nasal Cannula Nasal Cannula Oxygen Flow Rate 2 2 04/27/25 16:00 04/27/25 20:00 04/27/25 20:00 Temperature 36.5 C Pulse Rate 62 78 69 Respiratory Rate 13 Blood Pressure 125/109 H Pulse Oximetry 95 Oxygen Delivery Oxygen Flow Rate 04/27/25 20:00 04/28/25 00:00 04/28/25 00:04 Temperature 36.6 C Pulse Rate 88 80 Respiratory Rate 15 Blood Pressure 156/82 H Pulse Oximetry 95 96 Oxygen Delivery Room Air Oxygen Flow Rate 04/28/25 04:00 04/28/25 08:00 Temperature 36.7 C Pulse Rate 70 75 Respiratory Rate 18 Blood Pressure 165/78 H Pulse Oximetry 96 Oxygen Delivery Oxygen Flow Rate Intake/Output Intake/Output: Intake & Output 04/25/25 04/26/25 04/27/25 04/28/25 23:59 23:59 23:59 23:59 Intake Total 4576.7 2600.0 1950 600 Output Total 1550 600 925 Balance 3026.7 2000.0 1025 600 Meds/Results Medications: Active Medications Generic Name Dose Route Start Last Admin Trade Name Freq PRN Reason Stop Dose Admin Aspirin 325 mg 04/26/25 09:00 04/27/25 08:59 Aspirin 325 Mg Enteric Tablet PO 325 mg QAM [place] Administration Atorvastatin Calcium 80 mg 04/26/25 09:00 04/27/25 08:59 Atorvastatin 40 Mg Tablet PO 80 mg DAILY [place] Administration Benzocaine 1 lozenge 04/28/25 00:11 04/28/25 00:38 Benzocaine/Menthol (*Bkc) 18 Ea Lozenge PO 1 lozenge PRN PRN Administration Sore Throat Dextrose 12.5 gm 04/25/25 09:42 04/26/25 00:10 Dextrose 50% 25 Gm/50 Ml Syringe IV PUSH 12.5 gm PRN PRN Administration Hypoglycemia Protocol Enoxaparin Sodium 40 mg 04/26/25 09:00 04/27/25 08:59 Enoxaparin 40 Mg/0.4 Ml Syringe SUB-Q 40 mg DAILY [place] Administration Glucagon 1 mg 04/25/25 09:42 Glucagon For Inj 1 Mg Vial IM PRN PRN Hypoglycemia Protocol Glucose 15 gm 04/25/25 09:42 Glucose Oral Gel 15 Gm Of Glucse In 37.5 Gm Tube PO PRN PRN Hypoglycemia Protocol Dextrose 1,000 mls @ 100 mls/hr 04/25/25 09:42 Dextrose 5% 1,000 Ml IVPB PRN PRN Hypoglycemia Protocol Cefepime HCl 2 gm/ Sodium 50 mls @ 100 mls/hr 04/28/25 09:00 Chloride IVPB Q12H [place] Insulin Aspart 3 - 6 units 04/27/25 12:00 04/28/25 07:33 Insulin Aspart (*Bkc) 100 Units/Ml SUB-Q Not Given TIDWM [place] Protocol Insulin Glargine 10 units 04/26/25 21:00 04/27/25 20:47 Insulin Glargine (*Bkc) 100 Units/Ml SUB-Q 10 units HS [place] Administration Lisinopril 20 mg 04/27/25 11:35 04/27/25 11:51 Lisinopril 20 Mg Tablet PO 20 mg QAM [place] Administration Pantoprazole Sodium 40 mg 04/26/25 09:00 04/27/25 08:59 Pantoprazole Sodium Iv 40 Mg Vial IV PUSH 40 mg QAM [place] Administration Perflutren Lipid Microsphere 0 ml 04/25/25 13:41 Perflutren Lipid Microspheres 1.5 Ml Vial Diluted To 10 Ml Total Volume IV PUSH 04/28/25 13:41 ONCE PRN adequate visualization Protocol Radiology Results: ITS Impressions Cervical Spine CT 04/25/25 09:27 IMPRESSION: HEAD: 1. 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 Consider MRI, if able. 2. No intracerebral hemorrhage. C-SPINE: 1. No acute fracture. Head CT 04/25/25 09:27 IMPRESSION: HEAD: 1. 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 Consider MRI, if able. 2. No intracerebral hemorrhage. C-SPINE: 1. No acute fracture. Chest X-Ray 04/25/25 09:36 IMPRESSION: 1. No acute cardiopulmonary disease. Pelvis X-Ray 04/25/25 09:36 Impression: No acute fracture or malalignment. Renal Ultrasound 04/25/25 12:55 IMPRESSION: 1. Normal kidneys without hydronephrosis. Carotid Doppler Study 04/26/25 17:50 IMPRESSION: 1. Antegrade flow in both vertebral arteries.. 2. Calcific atherosclerotic plaque of proximal internal carotid arteries on both sides with an estimated narrowing of less than 50% in diameter on each side based on NASCET criteria. No evidence of hemodynamically significant obstruction is noted.. Brain MRI 04/26/25 18:42 IMPRESSION: 1. Restricted diffusion suggestive of acute infarct in the occipital lobes, predominantly on the left side and smaller area on the right side. 2. No intracranial bleed. No space-occupying lesions. No abnormal enhancement. Labs Labs: Laboratory Results - last 24 hr 04/27/25 04/27/25 04/27/25 08:58 11:23 16:53 WBC RBC Hgb Hct MCV MCH MCHC RDW Plt Count MPV Immature Gran % (Auto) Neut % (Auto) Lymph % (Auto) [place]cleod % (Auto) Eos % (Auto) Baso % (Auto) Lymph # (Auto) [place] # (Auto) Eos # (Auto) Baso # (Auto) Abs Immat Gran (auto) Absolute Neuts (auto) Absolute Nucleated RBC Nucleated RBC % Sodium Potassium Chloride Carbon Dioxide Anion Gap BUN Creatinine Estim Creat Clear Calc Estimated GFR Glucose POC Capillary Glucose 92 94 125 H Calcium Magnesium Total Bilirubin AST ALT Alkaline Phosphatase Total Protein Albumin Vancomycin Trough 04/27/25 04/28/25 04/28/25 20:43 05:22 07:20 WBC 8.4 RBC 4.33 Hgb 12.9 Hct 38.8 MCV 89.6 MCH 29.8 MCHC 33.2 RDW 12.9 Plt Count 152 MPV 10.5 H Immature Gran % (Auto) 0.4 Neut % (Auto) 70.2 Lymph % (Auto) 21.8 Mcleod % (Auto) 5.2 Eos % (Auto) 1.8 Baso % (Auto) 0.6 Lymph # (Auto) 1.84 Mcleod # (Auto) 0.4 Eos # (Auto) 0.2 Baso # (Auto) 0.1 Abs Immat Gran (auto) 0.03 Absolute Neuts (auto) 5.9 Absolute Nucleated RBC 0.000 Nucleated RBC % 0.0 Sodium 132 L Potassium 4.2 Chloride 106 Carbon Dioxide 29 Anion Gap -3 L BUN 11 D Creatinine 0.54 L Estim Creat Clear Calc 66 Estimated GFR > 60 Glucose 158 H POC Capillary Glucose 323 H 136 H Calcium 8.4 Magnesium 2.1 Total Bilirubin 0.8 AST 68 H ALT 49 H Alkaline Phosphatase 94 Total Protein 6.0 L Albumin 3.2 L Vancomycin Trough 8.5 L Quality VTE Prophylaxis VTE prophylaxis: pharmacologic ordered
--- NOTE | 2025-04-28 10:44 | WPDANESPN ---
Anes - Prog Note Post-Op Date/Time: 04/28/25 10:44 Cardiovascular status: normal Respiratory status: normal Airway patency: baseline Mental status: baseline Post-Op hydration status: normal Vital Signs: Last Vital Signs Temp 36.7 C 04/28/25 08:00 Pulse 74 04/28/25 08:00 Resp 16 04/28/25 08:00 BP 165/78 H 04/28/25 08:00 Pulse Ox 96 04/28/25 08:00 O2 Del Method Room Air 04/28/25 08:00 O2 Flow Rate 2 04/27/25 15:13 FiO2 21 04/25/25 20:03 Pain Score (VAS): 1 I/O: Intake & Output 04/27/25 04/28/25 04/28/25 23:59 07:59 15:59 Intake Total 1130 600 480 Output Total 550 Balance 580 600 480 Laboratory Tests 04/28/25 05:22 04/28/25 05:22 04/27/25 04/27/25 04/27/25 11:23 16:53 20:43 WBC RBC Hgb Hct MCV MCH MCHC RDW Plt Count MPV Immature Gran % (Auto) Neut % (Auto) Lymph % (Auto) [place] % (Auto) Eos % (Auto) Baso % (Auto) Lymph # (Auto) [place] # (Auto) Eos # (Auto) Baso # (Auto) Abs Immat Gran (auto) Absolute Neuts (auto) Absolute Nucleated RBC Nucleated RBC % Sodium Potassium Chloride Carbon Dioxide Anion Gap BUN Creatinine Estim Creat Clear Calc Estimated GFR Glucose POC Capillary Glucose 94 125 H 323 H Calcium Magnesium Total Bilirubin AST ALT Alkaline Phosphatase Total Protein Albumin Vancomycin Trough 04/28/25 04/28/25 05:22 07:20 WBC 8.4 RBC 4.33 Hgb 12.9 Hct 38.8 MCV 89.6 MCH 29.8 MCHC 33.2 RDW 12.9 Plt Count 152 MPV 10.5 H Immature Gran % (Auto) 0.4 Neut % (Auto) 70.2 Lymph % (Auto) 21.8 [place] % (Auto) 5.2 Eos % (Auto) 1.8 Baso % (Auto) 0.6 Lymph # (Auto) 1.84 [place] # (Auto) 0.4 Eos # (Auto) 0.2 Baso # (Auto) 0.1 Abs Immat Gran (auto) 0.03 Absolute Neuts (auto) 5.9 Absolute Nucleated RBC 0.000 Nucleated RBC % 0.0 Sodium 132 L Potassium 4.2 Chloride 106 Carbon Dioxide 29 Anion Gap -3 L BUN 11 D Creatinine 0.54 L Estim Creat Clear Calc 66 Estimated GFR > 60 Glucose 158 H POC Capillary Glucose 136 H Calcium 8.4 Magnesium 2.1 Total Bilirubin 0.8 AST 68 H ALT 49 H Alkaline Phosphatase 94 Total Protein 6.0 L Albumin 3.2 L Vancomycin Trough 8.5 L Microbiology 04/25/25 10:50 Blood Blood Culture - Preliminary 04/25/25 11:02 Blood Blood Culture - Preliminary Post-procedural complaints: none Patient Feedback: Patient satisfied with anesthetic care.
[2025-04-28] MEDS: INSULIN ASPART (*BKC) 100 UNITS/ML SUB-Q (11:21)
--- NOTE | 2025-04-28 16:51 | PC.NURSE ---
This patient, Urvashi Clifford, was transferred to [facility] on 04/28/25 at 1651. Personal belongings sent with patient. Report given to JERALD Dunham. Appropriate documentation sent with patient.
--- NOTE | 2025-04-28 18:49 | PC.NURSE ---
164 patient to room 254 from ICU 5
[2025-04-28] MEDS: INSULIN GLARGINE (*BKC) 100 UNITS/ML 10 UNITS SUB-Q (20:23)
[2025-04-29 05:59] LABS: Hematocrit 37.5 % (37.0-47.0); Hemoglobin 12.3 g/dL (12.0-15.0); Immature Granulocyte Percent A 0.5 % (0-0.5); Lymphocytes Absolute Auto 1.47 K/mm3 (0.9-3.2); Mean Corpuscular HGB Conc 32.8 g/dl (32-36); Mean Corpuscular Hemoglobin 29.6 pg (26-34); Mean Corpuscular Volume 90.1 fl (80-100); Nucleated Red Blood Cells Absolute Auto 0.000 K/mm3 (0.0-0.012); Nucleated Red Blood Cells Perc 0.0 % (0.0-0.2); Platelet Count Result 141 k/mm3 (150-375); Red Blood Count 4.16 M/mm3 (4.2-5.4); White Blood Count 6.4 K/mm3 (4.5-10.0)
[2025-04-29 06:19] VITALS: BP 158/70; PULSE 79; RESP 16; TEMP 36.4; O2SAT 96
[2025-04-29 06:20] LABS: Alanine Aminotransferase 46 U/L (6-35); Albumin Level 3.2 g/dL (3.5-5.1); Alkaline Phosphatase 99 U/L (38-126); Anion Gap 0 mmol/L (4-12); Aspartate Amino Transferase 51 U/L (14-36); Bilirubin,Total 0.8 mg/dL (0.2-1.3); Blood Urea Nitrogen 8 mg/dL (7-17); Calcium 8.7 mg/dL (8.4-10.2); Carbon Dioxide 31 mmol/L (22-30); Chloride 103 mmol/L (98-107); Estimated CRCL calculation 71 ml/min; Estimated Glomerular Filt Rate > 60; Glucose 157 mg/dL (65-110); Magnesium 2.2 mg/dL (1.6-2.3); Potassium 3.7 mmol/L (3.4-5.0); Sodium 134 mmol/L (137-145); Total Protein 6.1 g/dL (6.3-8.2)
[2025-04-29] MEDS: CEFEPIME 2 GM in SODIUM CHLORIDE 0.9% IV 50 ML 100 ML IVPB (08:32)
[2025-04-29] MEDS: ASPIRIN 325 MG ENTERIC TABLET PO (08:32)
[2025-04-29] MEDS: ENOXAPARIN 40 MG/0.4 ML SYRINGE SUB-Q (08:33)
[2025-04-29] MEDS: ATORVASTATIN 40 MG TABLET 80 MG PO (08:33)
[2025-04-29 08:34] VITALS: RESP 16; O2SAT 96
[2025-04-29] MEDS: PANTOPRAZOLE SODIUM IV 40 MG VIAL IV PUSH (08:34)
[2025-04-29] MEDS: INSULIN ASPART (*BKC) 100 UNITS/ML SUB-Q ×2 (12:19→17:13)
--- NOTE | 2025-04-29 13:10 | P.DS_ITS ---
DS: Admitting Diagnosis Discharge Date 04/29/2025 Admitting Diagnosis AMS DS: Discharge Diagnosis Discharge Diagnosis (1) DKA (diabetic ketoacidosis): Qualifiers: Diabetes mellitus complication detail: without coma Diabetes mellitus type: type 2 Qualified Code(s): E11.10 - Type 2 diabetes mellitus with ketoacidosis without coma Code(s): E11.10 - Type 2 diabetes mellitus with ketoacidosis without coma Status: Acute (2) CVA (cerebral vascular accident): Qualifiers: CVA mechanism: unspecified Qualified Code(s): I63.9 - Cerebral infarction, unspecified Code(s): I63.9 - Cerebral infarction, unspecified Status: Acute DS: Summary Hospital Course Hospital Course: Reason for Admission * Altered mental status (AMS) and hyperglycemia History of Present Illness 70-year-old female with a history of type 2 diabetes mellitus (on insulin) and tobacco use (1 PPD), presented via EMS after being found on the floor at home by her daughter, alert but not answering questions or following commands. Last known well was the day prior. She had several days of nausea and vomiting. Initial glucose was 1226 mg/dL, and she was found to be in diabetic ketoacidosis (DKA) with associated encephalopathy and acute kidney injury. She was also found to have leukocytosis and an elevated procalcitonin, meeting criteria for sepsis. Imaging revealed a subacute left occipital infarct. Hospital Course 1. Diabetic Ketoacidosis (DKA) * Severe DKA on admission (glucose 1226, pH 7.28, HCO3 11.6, AG 27, lactic acid 6.4, A1c 9.9%) * Treated with IV fluids, insulin infusion, and electrolyte replacement * Anion gap closed, transitioned to subcutaneous insulin * Dietitian and hematology nurse educator consulted; transitioned to diabetic diet 2. Encephalopathy * Initially altered, likely multifactorial (DKA, subacute CVA) * Ammonia and TSH normal * Mental status improved with DKA treatment; by discharge, alert and oriented x3 3. Sepsis * Met SIRS/sepsis criteria (WBC 22.6?28.1, procalcitonin 16.8) * No clear source identified (UA and CXR negative, blood cultures negative) * Empiric vancomycin and cefepime started, vancomycin discontinued after negative LORI and cultures * Completed 3 days of levofloxacin (Levaquin) at discharge 4. Acute/Subacute CVA * CT and MRI: Acute infarct in left occipital lobe, smaller area on right * No intracranial hemorrhage * Carotid Doppler: Bilateral calcific atherosclerotic plaque, <50% stenosis, no hemodynamically significant obstruction * Neurology consulted; started on aspirin and atorvastatin * Passed swallow evaluation; no dysphagia * PT/OT consulted; required walker at discharge 5. Acute Kidney Injury * Admission creatinine 1.9, BUN 49?52, GFR 21?29 * Likely secondary to DKA and dehydration * Improved with IV fluids; creatinine normalized by discharge * Renal ultrasound: Normal 6. Electrolyte Abnormalities * Hypokalemia, hypophosphatemia, and mild hyponatremia corrected during hospitalization 7. Hypertension * Blood pressure elevated during admission; lisinopril dose increased 8. Cardiac Evaluation * TTE: Hyperdynamic LV, grade II diastolic dysfunction, possible PFO, possible aortic valve vegetation * LORI: No PFO, no vegetation, mild MR/TR, normal biventricular function Pertinent Labs and Imaging * CBC:?WBC 22.6?28.1, Hgb stable, Plt normal * BMP:?Glucose 1226 ? 120, Creatinine 1.9 ? 1.03, BUN 49?52 ? 46, Na 130?144, K 2.7?4.9, CO2 9?18 * Liver panel:?Mildly elevated AST, low albumin, otherwise unremarkable * UA:?Glycosuria, ketonuria, no infection * Procalcitonin:?16.8 * Imaging: * CT/MRI brain:?Acute/subacute left occipital infarct, smaller right occipital infarct, no hemorrhage * Carotid Doppler:?Bilateral non-significant atherosclerotic plaque * Renal US:?Normal * LORI:?No PFO, no vegetation Consultations * Neurology * Cardiology * Nephrology * PT/OT * Speech therapy (passed swallow eval) * Dietitian/parent educator Hospital Course Summary The patient was admitted with severe DKA, sepsis, and acute encephalopathy. She was found to have an acute occipital stroke. She was managed in the ICU with IV fluids, insulin, and broad-spectrum antibiotics. Her mental status and renal function improved with treatment. Cardiac workup for embolic source was negative. She was transitioned to subcutaneous insulin, started on secondary stroke prevention, and her blood pressure was managed with increased lisinopril. She required a walker for ambulation at discharge and was set up with home health services. Discharge Medications * Insulin aspart?(Novolog) per home sliding scale * Insulin glargine?(Lantus) per home regimen * Aspirin?325 mg PO daily * Atorvastatin?80 mg PO daily * Lisinopril?(dose per latest adjustment) * Levofloxacin (Levaquin)?to complete 3 days * Other medications?as per home and hospital regimen Discharge Disposition * Home with home health * Ambulates with walker * PT/OT and diabetes education to continue at home Follow-Up Recommendations * Primary care within 1 week * Neurology follow-up within 2?4 weeks * Cardiology follow-up as needed * Outpatient labs: BMP, CBC, A1c in 1?2 weeks * Continue home health/PT/OT as arranged Time Spent with Patient Time attestation: Total time spent providing and/or coordinating discharge services: DS: Data Data Completed and Pending Labs on day of discharge: Labs from last 24 hours 04/29/25 04/29/25 04/29/25 12:04 08:31 05:36 WBC 6.4 RBC 4.16 L Hgb 12.3 Hct 37.5 MCV 90.1 MCH 29.6 MCHC 32.8 RDW 12.5 Plt Count 141 L MPV 10.9 H Immature Gran % (Auto) 0.5 Neut % (Auto) 65.6 Lymph % (Auto) 23.0 [place] % (Auto) 7.8 Eos % (Auto) 2.5 Baso % (Auto) 0.6 Lymph # (Auto) 1.47 [place] # (Auto) 0.5 Eos # (Auto) 0.2 Baso # (Auto) 0.0 Abs Immat Gran (auto) 0.03 Absolute Neuts (auto) 4.2 Absolute Nucleated RBC 0.000 Nucleated RBC % 0.0 Sodium 134 L Potassium 3.7 Chloride 103 Carbon Dioxide 31 H Anion Gap 0 L BUN 8 Creatinine 0.50 L Estim Creat Clear Calc 71 Estimated GFR > 60 Glucose 157 H POC Capillary Glucose 321 H 147 H Calcium 8.7 Magnesium 2.2 Total Bilirubin 0.8 AST 51 H ALT 46 H Alkaline Phosphatase 99 Total Protein 6.1 L Albumin 3.2 L 04/28/25 04/28/25 20:34 16:39 WBC RBC Hgb Hct MCV MCH MCHC RDW Plt Count MPV Immature Gran % (Auto) Neut % (Auto) Lymph % (Auto) [place] % (Auto) Eos % (Auto) Baso % (Auto) Lymph # (Auto) [place] # (Auto) Eos # (Auto) Baso # (Auto) Abs Immat Gran (auto) Absolute Neuts (auto) Absolute Nucleated RBC Nucleated RBC % Sodium Potassium Chloride Carbon Dioxide Anion Gap BUN Creatinine Estim Creat Clear Calc Estimated GFR Glucose POC Capillary Glucose 348 H 165 H Calcium Magnesium Total Bilirubin AST ALT Alkaline Phosphatase Total Protein Albumin Preliminary micro results at discharge 04/25/25 10:50 Blood Culture - Preliminary Blood 04/25/25 11:02 Blood Culture - Preliminary Blood Discharge Plan Discharge Attending physician on discharge: Sharon Diaz Consulting providers: Antonio Mckeon; Victoria Cooper; Peewee Mendez Discharging Clinician: Sharon Diaz Anticipated Discharge Date/Time: 04/29/25 12:45 Patient Disposition: Home with Home Health Service Activity: as tolerated Diet: as tolerated and diabetic Patient Instructions: Antibiotic Form, Basic Carbohydrate Counting (DC) Patient Language: Kyrgyz Stand Alone Forms: General Discharge Information Follow-up/Referrals: Victoria Cooper MD [Physician, Cardiology] Referral Note: F/u wt Cardiology as instructed Antonio Mckeon MD [Physician, Neurology] Referral Note: F/u with Neurology as instructed Joaquín,Keagan Crespo MD [Primary Care Provider] Referral Note: F/u with PCP in 3-5 days Discharge Medications: New aspirin 325 mg Tablet,Delayed Release (Dr/Ec) 325 mg PO QAM 30 Days Qty: 30 0RF atorvastatin 40 mg Tablet 80 mg PO DAILY 30 Days Qty: 60 1RF lisinopril 20 mg Tablet 40 mg PO QAM 30 Days Qty: 60 1RF levofloxacin 750 mg tablet 750 mg PO DAILY 3 Days Qty: 3 0RF Continued insulin glargine [Lantus Solostar U-100 Insulin] 100 unit/mL (3 mL) insulin pen 20 unit subcut QPM insulin aspart U-100 [Novolog FlexPen U-100 Insulin] 100 unit/mL (3 mL) insulin pen 10 unit subcut TID Date of admission: 04/25/25 14:16 Primary Care Provider: Joaquín,Keagan Crespo Admitting Provider: Martín Guevara Attending physician on admission: Martín Guevara Condition: Serious
[2025-04-29 15:49] VITALS: BP 154/56; PULSE 72; RESP 18; TEMP 36.8; O2SAT 93
--- NOTE | 2025-05-01 06:54 | P.CDI_ITS ---
CDI Query Clarification Request Encephalopathy has been documented. Please clarify type of encephalopathy: * Metabolic * vascular encephalopathy (due to CVA) * Other * Unable to Determine Hospital Course 1. Diabetic Ketoacidosis (DKA) * Severe DKA on admission (glucose 1226, pH 7.28, HCO3 11.6, AG 27, lactic acid 6.4, A1c 9.9%) * Treated with IV fluids, insulin infusion, and electrolyte replacement * Anion gap closed, transitioned to subcutaneous insulin * Dietitian and conservation educator consulted; transitioned to diabetic diet 2. Encephalopathy * Initially altered, likely multifactorial (DKA, subacute CVA) * Ammonia and TSH normal * Mental status improved with DKA treatment; by discharge, alert and oriented x3 3. Sepsis * Met SIRS/sepsis criteria (WBC 22.6?28.1, procalcitonin 16.8) * No clear source identified (UA and CXR negative, blood cultures negative) * Empiric vancomycin and cefepime started, vancomycin discontinued after negative LORI and cultures * Completed 3 days of levofloxacin (Levaquin) at discharge 4. Acute/Subacute CVA * CT and MRI: Acute infarct in left occipital lobe, smaller area on right * No intracranial hemorrhage * Carotid Doppler: Bilateral calcific atherosclerotic plaque, <50% stenosis, no hemodynamically significant obstruction * Neurology consulted; started on aspirin and atorvastatin * Passed swallow evaluation; no dysphagia * PT/OT consulted; required walker at discharge 5. Acute Kidney Injury * Admission creatinine 1.9, BUN 49?52, GFR 21?29 * Likely secondary to DKA and dehydration * Improved with IV fluids; creatinine normalized by discharge * Renal ultrasound: Normal 6. Electrolyte Abnormalities * Hypokalemia, hypophosphatemia, and mild hyponatremia corrected during hospitalization 7. Hypertension * Blood pressure elevated during admission; lisinopril dose increased 8. Cardiac Evaluation * TTE: Hyperdynamic LV, grade II diastolic dysfunction, possible PFO, possible aortic valve vegetation * LORI: No PFO, no vegetation, mild MR/TR, normal biventricular function <Licha Badillo RN - Last Filed: 05/01/25 06:55> Clarified Diagnosis Clarified Diagnosis: * Metabolic <Sharon Diaz MD - Last Filed: 05/01/25 08:42>
--- NOTE | 2025-05-01 06:54 | WPDCDIQUERY2 ---
CDI Query Clarification Request Encephalopathy has been documented. Please clarify type of encephalopathy: Metabolic vascular encephalopathy (due to CVA) Other Unable to Determine Hospital Course 1. Diabetic Ketoacidosis (DKA) Severe DKA on admission (glucose 1226, pH 7.28, HCO3 11.6, AG 27, lactic acid 6.4, A1c 9.9%) Treated with IV fluids, insulin infusion, and electrolyte replacement Anion gap closed, transitioned to subcutaneous insulin Dietitian and double ending machine operator consulted; transitioned to diabetic diet 2. Encephalopathy Initially altered, likely multifactorial (DKA, subacute CVA) Ammonia and TSH normal Mental status improved with DKA treatment; by discharge, alert and oriented x3 3. Sepsis Met SIRS/sepsis criteria (WBC 22.6?28.1, procalcitonin 16.8) No clear source identified (UA and CXR negative, blood cultures negative) Empiric vancomycin and cefepime started, vancomycin discontinued after negative LORI and cultures Completed 3 days of levofloxacin (Levaquin) at discharge 4. Acute/Subacute CVA CT and MRI: Acute infarct in left occipital lobe, smaller area on right No intracranial hemorrhage Carotid Doppler: Bilateral calcific atherosclerotic plaque, <50% stenosis, no hemodynamically significant obstruction Neurology consulted; started on aspirin and atorvastatin Passed swallow evaluation; no dysphagia PT/OT consulted; required walker at discharge 5. Acute Kidney Injury Admission creatinine 1.9, BUN 49?52, GFR 21?29 Likely secondary to DKA and dehydration Improved with IV fluids; creatinine normalized by discharge Renal ultrasound: Normal 6. Electrolyte Abnormalities Hypokalemia, hypophosphatemia, and mild hyponatremia corrected during hospitalization 7. Hypertension Blood pressure elevated during admission; lisinopril dose increased 8. Cardiac Evaluation TTE: Hyperdynamic LV, grade II diastolic dysfunction, possible PFO, possible aortic valve vegetation LORI: No PFO, no vegetation, mild MR/TR, normal biventricular function <Licha Badillo RN - Last Filed: 05/01/25 06:55> Clarified Diagnosis Clarified Diagnosis: Metabolic <Sharon Diaz MD - Last Filed: 05/01/25 08:42>
== END 2025-04-29 18:35 | disposition home or self-care (01) | DRG 871 ==
LOC: ANHED 11:49 → ANHICU 12:14 → ANH2MED 04-28 17:08
PROVIDERS: Internal Medicine; Student in an Organized Health Care Education/Training Program; Admitting Provider Family Medicine; Emergency Provider Emergency Medicine; PCP Family Medicine; Visit Provider Internal Medicine
PROC: B24BZZ4 Ultrasonography of Heart with Aorta, Transesophageal (ICD-10-PCS; CPT 93312; principal; 2025-04-27 14:00)
DX: A41.9 Sepsis, unspecified organism (principal); E11.10 Type 2 diabetes mellitus with ketoacidosis without coma; G93.41 Metabolic encephalopathy; I63.9 Cerebral infarction, unspecified; N17.9 Acute kidney failure, unspecified; E87.6 Hypokalemia; F17.210 Nicotine dependence, cigarettes, uncomplicated; F12.90 Cannabis use, unspecified, uncomplicated; I10 Essential (primary) hypertension; Z20.822 Contact with and (suspected) exposure to COVID-19; Z79.4 Long term (current) use of insulin
CPT/HCPCS: 36415; 36600; 70450; 70553; 71045; 72125; 72170; 76770; 80048; 80053; 80061; 80202; 80307; 81003; 82077; 82140; 82375; 82550; 82570; 82805; 82947; 82948; 83036; 83050; 83605; 83735; 84100; 84145; 84300; 84443; 84484; 85018; 85025; 87040; 87637; 87641; 92610; 93005; 93306; 93312; 93320; 93325; 93880; 96361; 96365; 96375; 97110; 97161; 97166; 97530; 99285; A9270; A9577; G0378; J0692; J1650; J1790; J1815; J2250; J2470; J2704; J3010; J3373; J3480; J7030; J7040; J7050